=== PATIENT | female | born 1940 | race Caucasian/White ===

== ENCOUNTER → 2017-05-06 | Outpatient (CLI) | payer OTHER ==
[~2017-05-06] MED LIST: CALCTAB5 PO; GABA1CAP5 PO; LEVO137T3 PO; PARO30TA4 PO; POLYSOL OP; PRAV20TA PO; PRM/3 PO; VERA1TAB52 PO; VRPSR240 PO
[2017-05-06 12:17] LABS: BASO % 0.5 %; BASO ABS # 0.02 K/uL (0-0.2); COMPLETE YES; EOS % 7.1 %; HEMATOCRIT 46.6 % (37-47); LYMPH % 38.5 %; LYMPH ABS # 1.67 K/uL (1.2-3.4); MEAN CELL VOLUME 89.6 fL (80-100); MEAN CORPUSCULAR HGB CONC 32.4 g/dl (32-36); MEAN PLATELET VOLUME 10.8 fL (7.4-10.4); MONO % 10.4 %; NEUT % 43.5 %; PLATELET COUNT 177 K/uL (130-400); WHITE BLOOD COUNT 4.34 K/uL (4.8-10.8)
[2017-05-06 12:30] LABS: ALT/SGPT 38 U/L (12-78); AST/SGOT 26 U/L (15-37); BLOOD UREA NITROGEN 16 mg/dl (7-18); BUN/CREATININE RATIO 22.4 (10-20); CARBON DIOXIDE 31 mmol/L (21-32); CHLORIDE 108 mmol/L (98-107); CREATININE 0.71 mg/dl (0.60-1.20); GLUCOSE 112 mg/dl (70-99); POTASSIUM 4.3 mmol/L (3.5-5.1); SODIUM 144 mmol/L (136-145)
[2017-05-06 12:31] LABS: CALCIUM 9.6 mg/dl (8.5-10.1)
[2017-05-06 12:41] LABS: ALB/GLOB RATIO 0.9 (0.9-2); ALKALINE PHOSPHATASE 81 U/L (45-117); CHOLESTEROL 180 mg/dl (0-200); CHOLESTEROL/HDL RATIO 2.4; HDL CHOLESTEROL 76 mg/dl; LDL CHOLESTEROL CALCULATED 80 mg/dl; THYROID STIMULATING HORMONE 0.239 uIu/ml (0.300-4.500); TRIGLYCERIDES 120 mg/dl (0-150); VERY LOW DENSITY LIPOPROT CALC 24 mg/dl
== END | disposition home or self-care (01) ==
LOC: C.LAB1850 10:30
PROVIDERS: ATTEND Internal Medicine Pulmonary Disease
DX: E78.5 Hyperlipidemia, unspecified (principal); I10 Essential (primary) hypertension; G43.709 Chronic migraine without aura, not intractable, without status migrainosus; R73.9 Hyperglycemia, unspecified; E03.9 Hypothyroidism, unspecified

== ENCOUNTER → 2017-05-24 | Day surgery (SDC) | payer OTHER ==
[2017-05-12 10:05] VITALS: Ht 162.6 cm; Wt 72.7 kg
[~2017-05-24] VITALS: Ht 162.6 cm; Wt 72.7 kg
[~2017-05-24] MED LIST changes: +ACETAMINOPHEN 325 MG TAB PO PRN; +ATROPINE SULFATE 0.1 MG/ML 5ML SYR IV PRN; +BRIMONIDINE TART 0.2% OP SOLN PER DROP CHARGE ONE; +EpHEDrine SULFATE INJ 50 MG/ML AMP IV PRN; +EpINEphrine INJ 1MG/ML AMP 1 MG/ML AMP ONE; +LACTATED RINGER'S 1000ML 500 ML IV SCH; +LIDOCAINE 4% OP SOLN DROP CHARGE ONE; +LIDOCAINE 4% OP SOLN DROP CHARGE OPL SCH; +LIDOCAINE HCL 1% MPF 2 ML VIAL ONE; +MIDAZOLAM HCL 1 MG/ML 2ML VIAL ONE; +MOXIFLOXACIN OPH SOLN PER DROP CHARGE ONE; +POVIDONE-IODINE OP SOLN 30 ML BTL ONE; -PRM/3 PO; +TOBRAMYCIN/DEXAMETHASONE OPH OINT PER APPLN CHARGE ONE
[2017-05-24] MEDS: PHENYLEPHRINE HCL 2.5% OP SOLN PER DROP CHARGE OPL SCH ×2 (12:08→12:15)
[2017-05-24] MEDS: TROPICAMIDE 1% OP SOLN PER DROP CHARGE OPL SCH ×2 (12:09→12:16)
[2017-05-24] MEDS: CYCLOPENTOLATE HCL 1% OP SOLN PER DROP CHARGE OPL SCH ×2 (12:11→12:17)
[2017-05-24] MEDS: KETOROLAC 0.5% OP SOLN PER DROP CHARGE OPL SCH ×2 (12:12→12:18)
[2017-05-24] MEDS: MOXIFLOXACIN OPH SOLN PER DROP CHARGE OPL SCH ×2 (12:14→12:20)
--- NOTE | 2017-05-24 13:18 | History & Physical Bridge - [place] ---
H&P Re-Evaluation Bridge Note: I have examined the patient, reviewed the History & Physical and in the interval since the performance of the History & Physical I have noted the following changes of clinical significance: No changes noted
--- NOTE | 2017-05-24 13:38 | Discharge Instructions-SurgCtr ---
Discharge Instructions Date of Service May 24, 2017. Visit Reason for Visit: Cataract Left Eye Discharge Discharge Diagnosis / Problem: cataract left eye Discharge Goals Goal(s): Improve function Activity Recommendations Activity Limitations: per Instructions/Follow-up section Lifting Limitations: no more than 5 pounds Anesthesia . Post Anesthesia Instructions: If you have had General Anesthesia or IV Sedation: * Do not drive today. * Resume driving when surgeon permits. * Do not make important decisions or sign legal documents today. * Call surgeon for: 1. Temperature elevations greater than 101 degrees F. 2. Uncontrollable pain. 3. Excessive bleeding. 4. Persistent nausea and vomiting. 5. Medication intolerance (nausea, vomiting or rash). * For nausea and vomiting use only clear liquids such as: tea, soda, bouillon until nausea subsides, then gradually increase diet as tolerated. * If you have any concerns or questions, call your surgeon's office. If physician is unavailable and it is an emergency, call 911 or go to the nearest emergency room. . Instructions / Follow-Up Instructions / Follow-Up ACTIVITY RECOMMENDATIONS: * Light activities * You may walk outside, read, watch television. * Mild irritation and blurred vision are common for the first few days, redness around the white part of the eye is common. MEDICATIONS: Resume previous medications unless instructed otherwise by your surgeon. Eye drops (today and tomorrow): Cipro - one drop in operative eye every 2 hours while awake Prednisolone 1% - one drop in operative eye every 2 hours while awake Ketorolac - one drop in operative eye every 2 hours while awake SPECIAL CARE INSTRUCTIONS: * If any problems or concerns, please call Dr. Baca's office at . * Keep plastic shield taped over eye to sleep at night. * Keep plastic shield taped over eye except to administer eye drops. * Keep plastic shield on until office visit the following day. FOLLOW UP VISIT: Follow-up with Dr. Baca in the [place] office as scheduled. If not already scheduled, please call the office at . Diet Recommendations Home Diet: resume previous diet Procedures Procedures Performed: Left Cataract Phacoemulsification With Intraocular Lens Implant Pending Studies Studies pending at discharge: no Medical Emergencies . Who to Call and When: Medical Emergencies: If at any time you feel your situation is an emergency, please call 911 immediately. . Non-Emergent Contact Non-Emergency issues call your: [employer] Out Worker . . "Provider Documentation" section prepared by Gonzalo Baca. .
--- NOTE | 2017-05-24 13:39 | Anesthesia Progress Nt - [facility] ---
Anesthesia Post Op Note Date & Time May 24, 2017 at 13:38 Vital Signs Pain Intensity: 0 Vital Signs Past 12 Hours Date Time Temp Pulse Resp B/P (MAP) Pulse Ox O2 Delivery O2 Flow Rate FiO2 05/24/17 11:58 36.9 72 16 135/68 (90) 92 Room Air Notes Mental Status: alert / awake / arousable, participated in evaluation Pt Amnestic to Procedure: Yes Nausea / Vomiting: adequately controlled Pain: adequately controlled Airway Patency, RR, SpO2: stable & adequate BP & HR: stable & adequate Hydration State: stable & adequate Anesthetic Complications: no major complications apparent
[2017-05-24 13:40] VITALS: TEMP 36.4
--- NOTE | 2017-05-24 13:40 | [facility] Operative Report ---
Operative Report Operative Date May 24, 2017. Pre-Operative Diagnosis Cataract Left Eye Post-Operative Diagnosis Same Procedure(s) Performed Left Cataract Phacoemulsification With Intraocular Lens Implant Surgeon Dr. Baca Net Web Developer Surgeon(s) None Estimated Blood Loss 0 Findings cataract left eye Fluids (cc crystalloids) see anesthesia record Specimens 0 Drains none Anesthesia local with sedation Complication(s) None Disposition Recovery Room / PACU Implants B&L MX60 19.0 Indications decreased vision left eye Description of Procedure After informed consent was obtained in the holding area the patient was wheeled back to the operating room where cardiac monitoring leads and oxygen by nasal cannula was administered by Anesthesia. Gentle IV sedation was given, and the patient's left eye was prepped and draped in usual sterile fashion. A wire lid speculum was placed into the left eye and the operating microscope was swung into position. Using 0.12 forceps and a Supersharp blade a paracentesis port was made 3 o'clock hours away from the 3 o'clock position of the patient's left eye. 1% non-preserved Lidocaine was then injected into the anterior chamber for anesthesia. A 2.2 mm keratotome blade was then used to make a shelved clear corneal incision at the 3 o'clock position of the left eye. Amvisc was injected into the anterior chamber and a cystotome and Utrata forceps were used to perform a curvilinear capsulorrhexis. BSS on a hydrodissection cannula was used to hydrodissect the lens nucleus away from the capsular bag. The phacoemulsification handpiece was then used in a stop and chop fashion to remove the lens nucleus. The irrigation and aspiration handpiece was then used to remove the residual cortical material. Amvisc was injected into the capsular bag and anterior chamber and a Bausch & Lomb MX60 19.0 Diopter intraocular lens was injected into the capsular bag. Irrigation and aspiration handpiece was used to remove the residual viscoelastic material. The wounds were hydrated and noted to be watertight. The wire lid speculum was removed from the eye. Vigamox, Brimonidine, and TobraDex ointment were placed on the eye and it was shielded. It should be noted that EndoCoat was used extensively during the case to protect the cornea endothelium. DISPOSITION: The patient tolerated the procedure well and was wheeled to the post anesthesia care unit in stable condition. I attest to the content of the Intraoperative Record and any orders documented therein. Any exceptions are noted below. I attest to the content of the Intraoperative Record and any orders documented therein. Any exceptions are noted below.
[2017-05-24 14:01] VITALS: BP 120/75; PULSE 65; O2SAT 94
== END | disposition home or self-care (01) ==
LOC: X.SURG 11:41
PROVIDERS: ATTEND Ophthalmology
DX: H25.12 Age-related nuclear cataract, left eye (principal); I10 Essential (primary) hypertension; Z90.710 Acquired absence of both cervix and uterus; Z90.49 Acquired absence of other specified parts of digestive tract; Z83.3 Family history of diabetes mellitus

== ENCOUNTER → 2017-06-07 | Day surgery (SDC) | payer OTHER ==
[2017-06-04 08:54] VITALS: Ht 162.6 cm; Wt 72.7 kg
[~2017-06-07] VITALS: Ht 162.6 cm; Wt 72.7 kg
[~2017-06-07] MED LIST changes: +500ML BSS 0.3ML EPI 1:1000PF IRRIG ONE; +AMVISC PLUS 0.8ML SYRINGE INT OCU ONE; +BSS FLUSH ONE; +ENDOCOAT 0.85ML SYRINGE INT OCU ONE; -LIDOCAINE 4% OP SOLN DROP CHARGE OPL SCH; +LIDOCAINE 4% OP SOLN DROP CHARGE OPR SCH; +ONDANSETRON INJ 2 MG/ML 2 ML VIAL IV PRN; +PROPARACAINE 0.5% OP SOLN PER DROP CHARGE OPR SCH; +VISCOAT 0.5ML SYRINGE INT OCU ONE
[2017-06-07] MEDS: PHENYLEPHRINE HCL 2.5% OP SOLN PER DROP CHARGE OPR SCH ×2 (10:57→11:02)
[2017-06-07] MEDS: TROPICAMIDE 1% OP SOLN PER DROP CHARGE OPR SCH ×2 (10:58→11:03)
[2017-06-07] MEDS: CYCLOPENTOLATE HCL 1% OP SOLN PER DROP CHARGE OPR SCH ×2 (10:59→11:04)
[2017-06-07] MEDS: KETOROLAC 0.5% OP SOLN PER DROP CHARGE OPR SCH ×2 (11:00→11:05)
[2017-06-07] MEDS: MOXIFLOXACIN OPH SOLN PER DROP CHARGE OPR SCH ×2 (11:01→11:11)
--- NOTE | 2017-06-07 12:04 | Discharge Instructions-SurgCtr ---
Discharge Instructions Date of Service Jun 07, 2017. Visit Reason for Visit: Cataract Right Eye Discharge Discharge Diagnosis / Problem: cataract right eye Discharge Goals Goal(s): Improve function Activity Recommendations Activity Limitations: per Instructions/Follow-up section Lifting Limitations: no more than 5 pounds Anesthesia . Post Anesthesia Instructions: If you have had General Anesthesia or IV Sedation: * Do not drive today. * Resume driving when surgeon permits. * Do not make important decisions or sign legal documents today. * Call surgeon for: 1. Temperature elevations greater than 101 degrees F. 2. Uncontrollable pain. 3. Excessive bleeding. 4. Persistent nausea and vomiting. 5. Medication intolerance (nausea, vomiting or rash). * For nausea and vomiting use only clear liquids such as: tea, soda, bouillon until nausea subsides, then gradually increase diet as tolerated. * If you have any concerns or questions, call your surgeon's office. If physician is unavailable and it is an emergency, call 911 or go to the nearest emergency room. . Instructions / Follow-Up Instructions / Follow-Up ACTIVITY RECOMMENDATIONS: * Light activities * You may walk outside, read, watch television. * Mild irritation and blurred vision are common for the first few days, redness around the white part of the eye is common. MEDICATIONS: Resume previous medications unless instructed otherwise by your surgeon. Eye drops (today and tomorrow): Cipro - one drop in operative eye every 2 hours while awake Prednisolone 1% - one drop in operative eye every 2 hours while awake Ketorolac - one drop in operative eye every 2 hours while awake SPECIAL CARE INSTRUCTIONS: * If any problems or concerns, please call Dr. Baca's office at . * Keep plastic shield taped over eye to sleep at night. * Keep plastic shield taped over eye except to administer eye drops. * Keep plastic shield on until office visit the following day. FOLLOW UP VISIT: Follow-up with Dr. Baca in the [place] office as scheduled. If not already scheduled, please call the office at . Diet Recommendations Home Diet: resume previous diet Procedures Procedures Performed: Right Cataract Phacoemulsification With Intraocular Lens Implant Pending Studies Studies pending at discharge: no Medical Emergencies . Who to Call and When: Medical Emergencies: If at any time you feel your situation is an emergency, please call 911 immediately. . Non-Emergent Contact Non-Emergency issues call your: Sanitation Technician . . "Provider Documentation" section prepared by Gonzalo Baca. .
--- NOTE | 2017-06-07 12:07 | [facility] Operative Report ---
Operative Report Operative Date Jun 07, 2017. Pre-Operative Diagnosis Cataract Right Eye Post-Operative Diagnosis Same Procedure(s) Performed Right Cataract Phacoemulsification With Intraocular Lens Implant Surgeon Dr. Baca Meat Hanger Surgeon(s) None Estimated Blood Loss 0 mL Findings cataract right eye Specimens None Drains none Anesthesia local with sedation Complication(s) None Disposition Recovery Room / PACU Implants mx60 20.5 Indications decreased vision right eye Description of Procedure After informed consent was obtained in the holding area the patient was wheeled back to the operating room where cardiac monitoring leads and oxygen by nasal cannula was administered by Anesthesia. Gentle IV sedation was given, and the patient's right eye was prepped and draped in usual sterile fashion. A wire lid speculum was placed into the right eye and the operating microscope was swung into position. Using 0.12 forceps and a Supersharp blade a paracentesis port was made 3 o'clock hours away from the 9 o'clock position of the patient's right eye. 1% non-preserved Lidocaine was then injected into the anterior chamber for anesthesia. A 2.0 mm keratotome blade was then used to make a shelved clear corneal incision at the 9 o'clock position of the right eye. Amvisc was injected into the anterior chamber and a cystotome and Utrata forceps were used to perform a curvilinear capsulorrhexis. BSS on a hydrodissection cannula was used to hydrodissect the lens nucleus away from the capsular bag. The phacoemulsification handpiece was then used in a stop and chop fashion to remove the lens nucleus. The irrigation and aspiration handpiece was then used to remove the residual cortical material. Amvisc was injected into the capsular bag and anterior chamber and a Bausch & Lomb MX60 20.5 Diopter intraocular lens was injected into the capsular bag. Irrigation and aspiration handpiece was used to remove the residual viscoelastic material. The wounds were hydrated and noted to be watertight. The wire lid speculum was removed from the eye. Vigamox, Brimonidine, and TobraDex ointment were placed on the eye and it was shielded. It should be noted that EndoCoat was used extensively during the case to protect the cornea endothelium. DISPOSITION: The patient tolerated the procedure well and was wheeled to the post anesthesia care unit in stable condition. I attest to the content of the Intraoperative Record and any orders documented therein. Any exceptions are noted below. I attest to the content of the Intraoperative Record and any orders documented therein. Any exceptions are noted below.
[2017-06-07 12:08] VITALS: TEMP 36.8
[2017-06-07 12:25] VITALS: BP 146/82; PULSE 62; O2SAT 95
--- NOTE | 2017-06-07 12:30 | Anesthesiology Progress Note ---
Anesthesia Post Op Note Date & Time Jun 07, 2017 at 12:29 Vital Signs Pain Intensity: 0 Vital Signs Past 12 Hours Date Time Temp Pulse Resp B/P (MAP) Pulse Ox O2 Delivery O2 Flow Rate FiO2 06/07/17 12:25 62 16 146/82 (103) 95 Room Air 06/07/17 12:08 36.8 78 16 147/89 (108) 97 Room Air 06/07/17 10:50 36.5 77 20 148/81 (103) 93 Room Air Notes Mental Status: alert / awake / arousable, participated in evaluation Pt Amnestic to Procedure: Yes Nausea / Vomiting: adequately controlled Pain: adequately controlled Airway Patency, RR, SpO2: stable & adequate BP & HR: stable & adequate Hydration State: stable & adequate Anesthetic Complications: no major complications apparent
== END | disposition home or self-care (01) ==
LOC: X.SURG 10:33
PROVIDERS: ATTEND Ophthalmology
DX: H25.11 Age-related nuclear cataract, right eye (principal); I10 Essential (primary) hypertension; Z90.710 Acquired absence of both cervix and uterus; Z90.49 Acquired absence of other specified parts of digestive tract; E05.90 Thyrotoxicosis, unspecified without thyrotoxic crisis or storm; Z98.42 Cataract extraction status, left eye

== ENCOUNTER → 2017-07-15 | Outpatient (CLI) | payer OTHER ==
[~2017-07-15] MED LIST changes: -500ML BSS 0.3ML EPI 1:1000PF IRRIG ONE; -ACETAMINOPHEN 325 MG TAB PO PRN; -AMVISC PLUS 0.8ML SYRINGE INT OCU ONE; -ATROPINE SULFATE 0.1 MG/ML 5ML SYR IV PRN; -BRIMONIDINE TART 0.2% OP SOLN PER DROP CHARGE ONE; -BSS FLUSH ONE; -ENDOCOAT 0.85ML SYRINGE INT OCU ONE; -EpHEDrine SULFATE INJ 50 MG/ML AMP IV PRN; -EpINEphrine INJ 1MG/ML AMP 1 MG/ML AMP ONE; -LACTATED RINGER'S 1000ML 500 ML IV SCH; -LIDOCAINE 4% OP SOLN DROP CHARGE ONE; -LIDOCAINE 4% OP SOLN DROP CHARGE OPR SCH; -LIDOCAINE HCL 1% MPF 2 ML VIAL ONE; -MIDAZOLAM HCL 1 MG/ML 2ML VIAL ONE; -MOXIFLOXACIN OPH SOLN PER DROP CHARGE ONE; -ONDANSETRON INJ 2 MG/ML 2 ML VIAL IV PRN; -POVIDONE-IODINE OP SOLN 30 ML BTL ONE; -PROPARACAINE 0.5% OP SOLN PER DROP CHARGE OPR SCH; -TOBRAMYCIN/DEXAMETHASONE OPH OINT PER APPLN CHARGE ONE; -VISCOAT 0.5ML SYRINGE INT OCU ONE
--- NOTE | 2017-07-15 15:39 | MAMMOGRAPHY REPORT ---
BILATERAL DIGITAL SCREENING MAMMOGRAM WITH CAD: 07/15/2017 CLINICAL HISTORY: Routine screening. Patient has no complaints. TECHNIQUE: Bilateral CC, MLO and repeat left CC views were obtained. Current study was also evaluate d with a Computer Aided Detection (CAD) system. COMPARISON: Comparison is made to exams dated: 06/01/2016 mammogram, 05/29/2015 mammogram, 05/28/2014 m ammogram, 05/26/2013 mammogram, 04/21/2012 mammogram, and 10/26/2011 mammogram - [facility]. BREAST COMPOSITION: There are scattered areas of fibroglandular density in both breasts. FINDINGS: There are multiple bilateral circumscribed subcentimeter masses scattered in the breasts, f luctuating in size compared to prior mammograms, most compatible with fluctuating cysts. There are s table scattered and grouped benign-appearing punctate microcalcifications. No new suspicious mass, a rchitectural distortion or cluster of microcalcifications is seen. IMPRESSION: ACR BI-RADS CATEGORY 1: NEGATIVE There is no mammographic evidence of malignancy. A 1 year screening mammogram is recommended. The pa tient will receive written notification of the results. Approximately 10% of breast cancers are not detected with mammography. A negative mammographic report should not delay biopsy if a clinically suggestive mass is present. Soledad Mustafa M.D. ay/:07/15/2017 15:19:01 Teaching Manager: Eliane ROSARIO)(Brian)([place]), [facility] letter sent: Normal 1/2 BI-RADS Code: ACR BI-RADS Category 1: Negative
== END | disposition home or self-care (01) ==
LOC: C.MAMM 13:21
PROVIDERS: ATTEND Internal Medicine Pulmonary Disease
DX: Z12.31 Encounter for screening mammogram for malignant neoplasm of breast (principal)

== ENCOUNTER 2021-03-15 19:20 | Observation (INO) ==
[2021-03-15] MEDS ORDERED: SODIUM CHLORIDE 0.9% 1000ML 1,000 ML IV ONE (19:38)
[2021-03-15] MEDS ORDERED: ONDANSETRON INJ 2 MG/ML 2 ML VIAL IV STA (19:38)
--- NOTE | 2021-03-15 19:44 | Emergency Department Note ---
History of Present Illness General Chief complaint: Abdominal Pain Stated complaint: ABD/BACK PAIN Time Seen by Provider: 03/15/21 19:26 Source: patient Mode of arrival: EMS Limitations: no limitations History of Present Illness Maximum Pain Intensity: 8 This patient is a 80-year-old female who presents to the emergency department for evaluation of abdominal/back pain. The patient states that she was at a graduation constitution party and developed a fairly sudden onset of pain throughout her abdomen. She states that she got up to leave and felt "woozy," and sat back down. She decided to leave the constitution party but became very nauseous and vomited on the way home. She states that at this time, she has some soreness in her ab domen and some pain throughout her back. She rates her current discomfort a 3/10. She states that at its worst, the pain was a 9/10. She denies any diarrhea, chest pain, shortness of breath or urinary symptoms. She denies recent illness or fevers. Home Medications Medication Instructions Recorded Confirmed Type calcium carbonate 600 mg(1,500 1 tab PO DAILY tab 06/06/19 03/15/21 History mg)-vitamin D3 800 unit chewable tablet verapamil 120 mg tablet,extended 120 mg PO DAILY #90 tab 04/25/20 03/15/21 Rx release pravastatin 20 mg tablet 20 mg PO QPM #90 tab 05/29/20 03/15/21 Rx levothyroxine 112 mcg PO DAILY 03/15/21 03/15/21 History paroxetine HCl 30 mg PO BID 03/15/21 03/15/21 History verapamil 240 mg PO DAILY 03/15/21 03/15/21 History Allergies Allergy/AdvReac Type Severity Reaction Status Date / Time No Known Drug Allergies Allergy Unknown Verified 03/15/21 19:34 Past Med/Surg History Medical History Obstructive uropathy Renal cyst Surgical History History of cataract surgery (~2016) History of colonoscopy (~2003) History of laparoscopic cholecystectomy History of lithotripsy (~2013) History of tonsillectomy and adenoidectomy History of total abdominal hysterectomy Family History Mother Graves' disease Grandmother Hypertension Uncle Hypertension Mother Kidney stones Sister Breast cancer Social History Smoking Status: Unknown if ever smoked Hx Alcohol Use: No Hx Substance Use: No Preferred Language: Faroese marital status: current occupational status: retired Feels Safe at Home: Yes Childhood Exposure to Second-Hand Smoke: Yes Dental Care, Regularly: Yes Physical Activity Frequency: 5-6 Times per Week Seatbelt Use: always Review of Systems A total of 10 systems reviewed and were otherwise negative Physical Exam Vital Signs Vital Signs - 24 hr 03/15/21 19:03 03/15/21 19:30 03/15/21 20:00 Temperature 36.9 C Temperature Source Oral Pulse Rate 98 H 91 H Pulse Rate from SpO2 Sensor 98 H 89 Pulse Rhythm Regular Respiratory Rate 22 18 Respiratory Effort / Characteristics Non-Labored Respiratory Depth Normal Blood Pressure 164/110 H 155/105 H 168/107 H Blood Pressure Mean 128 121 127 Blood Pressure Position Lying Pulse Oximetry 98 94 94 Oxygen Delivery Method Room Air Sepsis Recent Fever Within 48 Hours Yes Sepsis New/Unexplained Change in Mental Status No Sepsis Action Taken by Nursing No Action Required 03/15/21 20:30 03/15/21 20:54 03/15/21 21:00 Temperature Temperature Source Pulse Rate 86 93 H Pulse Rate from SpO2 Sensor 87 92 H Pulse Rhythm Respiratory Rate 19 25 H Respiratory Effort / Characteristics Respiratory Depth Blood Pressure 147/93 H 182/102 H 166/98 H Blood Pressure Mean 111 128 120 Blood Pressure Position Pulse Oximetry 91 93 Oxygen Delivery Method Sepsis Recent Fever Within 48 Hours Sepsis New/Unexplained Change in Mental Status Sepsis Action Taken by Nursing 03/15/21 21:30 03/15/21 21:53 03/15/21 22:00 Temperature Temperature Source Pulse Rate 93 H 87 86 Pulse Rate from SpO2 Sensor 86 90 86 Pulse Rhythm Respiratory Rate 16 25 H 16 Respiratory Effort / Characteristics Respiratory Depth Blood Pressure 151/102 H 190/106 H 174/104 H Blood Pressure Mean 118 134 127 Blood Pressure Position Pulse Oximetry 92 97 95 Oxygen Delivery Method Sepsis Recent Fever Within 48 Hours Sepsis New/Unexplained Change in Mental Status Sepsis Action Taken by Nursing 03/15/21 22:30 Temperature Temperature Source Pulse Rate 85 Pulse Rate from SpO2 Sensor 86 Pulse Rhythm Respiratory Rate 22 Respiratory Effort / Characteristics Respiratory Depth Blood Pressure 167/99 H Blood Pressure Mean 121 Blood Pressure Position Pulse Oximetry 92 Oxygen Delivery Method Sepsis Recent Fever Within 48 Hours Sepsis New/Unexplained Change in Mental Status Sepsis Action Taken by Nursing VITALS: Vitals are noted on the nurse's note and reviewed by myself. GENERAL: This is a 80-year-old female, in no acute distress, well-developed well-nourished. SKIN: The skin was without rashes. Facial erythema noted. EARS: External auditory canals clear, tympanic membranes pearly bingham without erythema or effusion bilaterally. EYES: Pupils equal round and reactive to light and accommodation. NOSE: Patent, turbinates without inflammation or discharge. MOUTH: Mucous membranes moist. Tonsils are not enlarged. Pharynx without erythema or exudate. NECK: Supple without nuchal rigidity. No lymphadenopathy. HEART: Regular rate and rhythm without murmurs gallops or rubs. LUNGS: Clear to auscultation bilaterally without wheezes, rales or rhonchi. ABDOMEN: Positive bowel sounds x 4. Soft, mild epigastric tenderness to palpation. No guarding or rebound tenderness. NEURO: Patient was alert and oriented to person place and time. Course Consultations Consultation #1: Dr. Shelton COLEMAN hospitalist Administered Medications Discontinued Medications Sodium Chloride (Nss 1000ml) 1,000 mls @ 999 mls/hr IV .Q1H1M ONE Stop: 03/15/21 20:38 Last Infusion: 03/15/21 22:34 Dose: 0 mls/hr Documented by: [id number] Admin: 03/15/21 20:17 Dose: 999 mls/hr Documented by: [id number] Promethazine HCl (Phenergan) 6.25 mg in 50.25 mls @ 201 mls/hr IV NOW STA Stop: 03/15/21 22:12 Last Admin: 03/15/21 22:41 Dose: 201 mls/hr Documented by: [id number] Ioversol (Optiray 300 100ml) 84 ml IV ONCE ONE Stop: 03/15/21 21:08 Last Admin: 03/15/21 21:08 Dose: 84 ml Documented by: [id number] Ondansetron HCl (Ondansetron Inj 2 Mg/Ml 2 Ml Vial) 4 mg IV NOW STA Stop: 03/15/21 19:39 Last Admin: 03/15/21 20:17 Dose: 4 mg Documented by: [id number] Medical Decision Making Differential Diagnosis Differential diagnosis includes appendicitis, diverticulitis, bowel obstruction, inflammatory bowel disease, renal colic, PUD, biliary pathology, pancreatitis, mesenteric ischemia, aortic pathology, infection, genitourinary, UTI, perforated viscus, among others. Home Medications Current Medication List: was personally reviewed by me Laboratory Data Attestation: I reviewed the patient's lab results. Result diagrams: 03/15/21 19:46 03/15/21 19:46 Lab Results 03/15/21 03/15/21 03/15/21 Range/Units 19:46 19:46 20:53 WBC 8.08 (4.8-10.8) K/uL RBC 5.45 H (4.2-5.4) M/uL Hgb 15.6 (12.0-16.0) g/dL Hct 47.2 H (37-47) % MCV 86.6 (80-100) fL MCH 28.6 (25-34) pg MCHC 33.1 (32-36) g/dL RDW Std Deviation 43.3 (36.4-46.3) fL RDW Coeff of Vishal 13.8 (11.5-14.5) % Plt Count 192 (130-400) K/uL MPV 9.9 (7.4-10.4) fL Immature Gran % (Auto) 0.2 % Neut % (Auto) 77.7 % Lymph % (Auto) 14.5 % Luna % (Auto) 6.9 % Eos % (Auto) 0.6 % Baso % (Auto) 0.1 % Neut # (Auto) 6.27 (1.4-6.5) K/uL Lymph # (Auto) 1.17 L (1.2-3.4) K/uL Luna # (Auto) 0.56 (0.11-0.59) K/uL Eos # (Auto) 0.05 (0-0.5) K/uL Baso # (Auto) 0.01 (0-0.2) K/uL Immature Gran # (Auto) 0.02 (0.00-0.02) K/uL Sodium 142 (136-145) mmol/L Potassium 3.9 (3.5-5.1) mmol/L Chloride 109 H (98-107) mmol/L Carbon Dioxide 30 (21-32) mmol/L Anion Gap 3.0 (3-11) BUN 18 (7-18) mg/dl Creatinine 0.73 (0.6-1.2) mg/dl Est Cr Clr Drug Dosing 57.5 ml/min Est GFR ( Amer) 91.4 Est GFR (Non-Af Amer) 78.9 BUN/Creatinine Ratio 24.1 H (10-20) Glucose 120 H (70-99) mg/dl Calcium 9.4 (8.5-10.1) mg/dl Total Bilirubin 0.4 (0.2-1) mg/dl AST 34 (15-37) U/L ALT 53 (12-78) U/L Alkaline Phosphatase 70 (45-117) U/L Troponin I < 0.015 (0-0.045) ng/ml Total Protein 7.8 (6.4-8.2) gm/dl Albumin 3.8 (3.4-5.0) gm/dl Globulin 4.0 (2.5-4.0) gm/dl Albumin/Globulin Ratio 1.0 (0.9-2) Lipase 651 H (73-393) U/L Urine Color Yellow Urine Appearance Clear (Clear) Urine pH 7.5 (4.5-7.5) Ur Specific Nemo 1.011 (1.000-1.030) Urine Protein Negative (Negative) Urine Glucose (UA) Negative (Negative) Urine Ketones Negative (Negative) Urine Blood Trace H (Negative) Urine Nitrite Negative (Negative) Urine Bilirubin Negative (Negative) Urine Urobilinogen Negative (Negative) Ur Leukocyte Esterase Negative (Negative) Urine WBC (Auto) 1-5 (0-5) /hpf Urine RBC (Auto) 0-4 (0-4) /hpf U Hyaline Cast (Auto) 0 (0-5) /lpf U Epithel Cells (Auto) 10-20 H (0-5) /lpf Urine Bacteria (Auto) Negative (Negative) COVID-19 Eval Order SARS-CoV-2 (PCR) (Negative) Influenza Type A (PCR) (Neg) Influenza Type B (PCR) (Neg) RSV (RT-PCR) (Neg) 03/15/21 03/15/21 Range/Units 22:00 22:00 WBC (4.8-10.8) K/uL RBC (4.2-5.4) M/uL Hgb (12.0-16.0) g/dL Hct (37-47) % MCV (80-100) fL MCH (25-34) pg MCHC (32-36) g/dL RDW Std Deviation (36.4-46.3) fL RDW Coeff of Vishal (11.5-14.5) % Plt Count (130-400) K/uL MPV (7.4-10.4) fL Immature Gran % (Auto) % Neut % (Auto) % Lymph % (Auto) % Luna % (Auto) % Eos % (Auto) % Baso % (Auto) % Neut # (Auto) (1.4-6.5) K/uL Lymph # (Auto) (1.2-3.4) K/uL Luna # (Auto) (0.11-0.59) K/uL Eos # (Auto) (0-0.5) K/uL Baso # (Auto) (0-0.2) K/uL Immature Gran # (Auto) (0.00-0.02) K/uL Sodium (136-145) mmol/L Potassium (3.5-5.1) mmol/L Chloride (98-107) mmol/L Carbon Dioxide (21-32) mmol/L Anion Gap (3-11) BUN (7-18) mg/dl Creatinine (0.6-1.2) mg/dl Est Cr Clr Drug Dosing ml/min Est GFR ( Amer) Est GFR (Non-Af Amer) BUN/Creatinine Ratio (10-20) Glucose (70-99) mg/dl Calcium (8.5-10.1) mg/dl Total Bilirubin (0.2-1) mg/dl AST (15-37) U/L ALT (12-78) U/L Alkaline Phosphatase (45-117) U/L Troponin I (0-0.045) ng/ml Total Protein (6.4-8.2) gm/dl Albumin (3.4-5.0) gm/dl Globulin (2.5-4.0) gm/dl Albumin/Globulin Ratio (0.9-2) Lipase (73-393) U/L Urine Color Urine Appearance (Clear) Urine pH (4.5-7.5) Ur Specific Nem[place] (1.000-1.030) Urine Protein (Negative) Urine Glucose (UA) (Negative) Urine Ketones (Negative) Urine Blood (Negative) Urine Nitrite (Negative) Urine Bilirubin (Negative) Urine Urobilinogen (Negative) Ur Leukocyte Esterase (Negative) Urine WBC (Auto) (0-5) /hpf Urine RBC (Auto) (0-4) /hpf U Hyaline Cast (Auto) (0-5) /lpf U Epithel Cells (Auto) (0-5) /lpf Urine Bacteria (Auto) (Negative) COVID-19 Eval Order [facility]FluRsv at [facility] SARS-CoV-2 (PCR) NEGATIVE (Negative) Influenza Type A (PCR) Negative (Neg) Influenza Type B (PCR) Negative (Neg) RSV (RT-PCR) Negative (Neg) Imaging Data Attestation: I personally reviewed and interpreted this imaging study as follows: Radiologist's Impression: CT ABDOMEN & PELVIS With Contrast: Impression: There are changes of acute pancreatitis involving the pancreatic head. Few punctate calcifications seen in the pancreatic head. Pancreatic duct is not dilated. Cholecystectomy. Bilateral nonobstructing renal stones are seen, measuring up to 7 mm in diameter on the left and 3 mm in diameter on the right. Radiologist: Alex Gomez MD ECG Data Attestation: I personally reviewed and interpreted this ECG as follows: Indication: + vomiting Rhythm: + normal sinus ECG Intervals/blocks: + Incomplete right bundle branch block ECG ST segments: + T-wave inversions Change: the following changes noted (RBBB) MDM Narrative Continuous monitor car operator: Order was placed for continuous monitor car operator. Patient was placed on the monitor car operator. Patient was noted to be in normal sinus rhythm at an initial rate of 95 bpm. The patient is a 80-year-old female who presents today complaining of abdominal pain and vomiting. Labs revealed no leukocytosis or anemia. Lipase was found to be elevated, but there were no other concerning electrolyte abnormalities. CT scan of the abdomen/pelvis shows evidence of acute pancreatitis. Patient does not drink alcohol. She has had a prior cholecystectomy. Her main complaint is nausea/vomiting. She was given antiemetics in the ER as well as IV fluids. The case was discussed with the [facility] service, who agreed to evaluate the patient for further care. Impression & Plan Acute pancreatitis Discharge Plan Visit Data Chief Complaint: Abdominal Pain Stated Complaint: ABD/BACK PAIN ED Provider: William Keating ED Midlevel Provider: Jaimee Paiz Discharge Problem: Acute pancreatitis Forms Stand Alone Forms: My [facility] Prescriptions Prescriptions: No Action verapamil 120 mg tablet extended release 120 mg PO DAILY Qty: 90 RF: 3 pravastatin 20 mg tablet 20 mg PO QPM Qty: 90 RF: 3 Caltrate 600 plus D 600 mg (1,500 mg)-800 unit tablet,chewable 1 tab PO DAILY RF: 0 paroxetine HCl 30 mg tablet 30 mg PO BID RF: 0 verapamil 240 mg tablet extended release 240 mg PO DAILY RF: 0 levothyroxine 112 mcg tablet 112 mcg PO DAILY RF: 0 Discharge Problem: Acute pancreatitis Qualifiers: Pancreatitis type: unspecified pancreatitis type Acute pancreatitis complicatio n: unspecified Qualified Code(s): K85.90 - Acute pancreatitis without necrosis or infection, unspecified
[2021-03-15 19:58] LABS: Basophils # (auto) 0.01 K/uL (0-0.2); Basophils % (auto) 0.1 %; Eosinophils # (auto) 0.05 K/uL (0-0.5); Eosinophils % (auto) 0.6 %; Hematocrit (blood only) 47.2 % (37-47); Hemoglobin 15.6 g/dL (12.0-16.0); Immature Granulocytes # (auto) 0.02 K/uL (0.00-0.02); Immature Granulocytes % (auto) 0.2 %; Lymphocytes # (auto) 1.17 K/uL (1.2-3.4); Lymphocytes % (auto) 14.5 %; Mean Corpuscular Hemoglobin 28.6 pg (25-34); Mean Corpuscular Hgb Conc 33.1 g/dL (32-36); Mean Corpuscular Volume 86.6 fL (80-100); Mean Platelet Volume 9.9 fL (7.4-10.4); Monocytes # (auto) 0.56 K/uL (0.11-0.59); Monocytes % (auto) 6.9 %; Neutrophils # (auto) 6.27 K/uL (1.4-6.5); Neutrophils % (auto) 77.7 %; Platelet Count 192 K/uL (130-400); RDW Coefficient of Variation 13.8 % (11.5-14.5); RDW Standard Deviation 43.3 fL (36.4-46.3); Red Blood Count 5.45 M/uL (4.2-5.4); White Blood Count 8.08 K/uL (4.8-10.8)
[2021-03-15 20:17] LABS: Alanine Aminotransferase 53 U/L (12-78); Albumin Level 3.8 gm/dl (3.4-5.0); Aspartate Aminotransferase 34 U/L (15-37); BUN Creatinine Ratio 24.1 (10-20); Blood Urea Nitrogen 18 mg/dl (7-18); Calcium 9.4 mg/dl (8.5-10.1); Carbon Dioxide 30 mmol/L (21-32); Chloride 109 mmol/L (98-107); Creatinine Clr Calc Pharmacy 57.5 ml/min; Est GFR (African American) 91.4; Est GFR (Non-African American) 78.9; Glucose 120 mg/dl (70-99); Lipase 651 U/L (73-393); Potassium 3.9 mmol/L (3.5-5.1); Sodium 142 mmol/L (136-145)
[2021-03-15 20:22] LABS: Alkaline Phosphatase 70 U/L (45-117); Bilirubin,Total 0.4 mg/dl (0.2-1); Total Protein 7.8 gm/dl (6.4-8.2); Troponin I < 0.015 ng/ml (0-0.045)
[2021-03-15 21:05] LABS: Appearance Urine Clear (Clear); Bacteria Urine Automated Negative (Negative); Bilirubin Urine Negative (Negative); Blood Urine Trace (Negative); Cast Urine Automated 0 /lpf (0-5); Color Urine Yellow; Glucose Urine UA Negative (Negative); Ketones Urine Negative (Negative); Leukocyte Esterase Urine Negative (Negative); Nitrite Urine Negative (Negative); Protein Urine Negative (Negative); RBC Urine Automated 0-4 /hpf (0-4); Specific Gravity Urine 1.011 (1.000-1.030); Urobilinogen Urine Negative (Negative); pH Urine 7.5 (4.5-7.5)
[2021-03-15] MEDS ORDERED: OPTIRAY 300 100mL IV ONE (21:07)
[2021-03-15] MEDS ORDERED: PROMETHAZINE 6.25 MG/50.25 ML BAG IV STA (21:58)
[2021-03-15 23:05] LABS: Influenza A virus by PCR Negative (Neg); Influenza B virus by PCR Negative (Neg); RSV by PCR Negative (Neg); SARS CoV2 RNA(COVID-19) InHosp NEGATIVE (Negative)
--- NOTE | 2021-03-15 23:35 | History & Physical Report ---
Date of Service March 15, 2021 Assessment & Plan (1) Hypertension: (2) Hypothyroidism: (3) Dyslipidemia: History of Present Illness 80 yo F hx HLD, HTN, Hypothyroidism, migraines, osteopenia brought to ER by family for acute onset worsening abdominal pain. States she was at a [place] democrat [place] the [place] earlier and all of a sudden had terrible abdominal pain. Pain did not relent with walking or time. Denies any alcohol use at democrat. Denies any fried or heavily fatty foods at the democrat. Daughter does say that she's had pancreatitis before, though that was due to cholelithiasis and required cholecystectomy. Describes pain as sharp, epigastric, radiating to back. NBNB emesis x1. No fevers, diarrhea. ED course significant for 1L NS repletion, CT A/P showing mild pancreatitis with fluid and fat stranding and multiple punctate calcifications in pancreatic head w/o duct enlargement. Primary Care Provider: Jose Yousif MD Allergies Allergy/AdvReac Type Severity Reaction Status Date / Time No Known Drug Allergies Allergy Unknown Verified 03/15/21 19:34 Home Medications Medication Instructions Recorded Confirmed Type calcium carbonate 600 mg(1,500 1 tab PO DAILY tab 06/06/19 03/15/21 History mg)-vitamin D3 800 unit chewable tablet verapamil 120 mg tablet,extended 120 mg PO DAILY #90 tab 04/25/20 03/15/21 Rx release pravastatin 20 mg tablet 20 mg PO QPM #90 tab 05/29/20 03/15/21 Rx levothyroxine 112 mcg PO DAILY 03/15/21 03/15/21 History paroxetine HCl 30 mg PO BID 03/15/21 03/15/21 History verapamil 240 mg PO DAILY 03/15/21 03/15/21 History Past Med/Surg History Medical History (Updated 03/17/21 @ 00:04 by Reyna Conrad) Acute pancreatitis Chronic migraine Dyslipidemia Hypertension Hypothyroidism Nephrolithiasis Obstructive uropathy Osteopenia Pancreatitis due to biliary obstruction Renal cyst Surgical History History of cataract surgery (~2016) History of colonoscopy (~2003) History of laparoscopic cholecystectomy History of lithotripsy (~2013) History of tonsillectomy and adenoidectomy History of total abdominal hysterectomy Family History Mother Graves' disease Grandmother Hypertension Uncle Hypertension Mother Kidney stones Sister Breast cancer Social History Smoking Status: Never smoker Second Hand Exposure: No; Do You Dip or Chew Tobacco: No; Tobacco Cessation Education Requested by Patient: No Hx Alcohol Use: No Hx Substance Use: No Preferred Language: Icelandic Communication Ability: Effective Dried Fruit Washer Required: No Beliefs That Will Affect Care: None marital status: Current Living Situation: Spouse current occupational status: retired Other Information That Helps Us Care for You: No Feels Safe at Home: Yes Safety Concerns: Feels Safe At This Time Childhood Exposure to Second-Hand Smoke: Yes Dental Care, Regularly: Yes Physical Activity Frequency: 5-6 Times per Week Seatbelt Use: always Assistive Devices: None Review of Systems Constitutional: no fever, no chills, no sweats and no fatigue Eyes: no blind spots and no discharge Ear, Nose, Mouth, Throat: no hearing loss and no nasal congestion Respiratory: no cough and no dyspnea Cardiovascular: no chest pain, no dyspnea on exertion and no edema Gastrointestinal: + abdominal pain, + bloating, + nausea and + vomiting; no c onstipation, no diarrhea/loose stools and no blood in stools Genitourinary: no dysuria Musculoskeletal: no joint pain and no myalgia Neurologic: no tingling, no numbness and no headache(s) Endocrine: no fatigue Physical Exam Physical Exam: Constitutional: elderly female, mildly confused laying in bed in NAD Eyes: EOMI, pupils equal and reactive bilaterally, no scleral icterus Cardiac: RRR, no murmurs, gallops or rubs. Normal S1, S2 Pulm: CTA BL, no wheezes, rhonchi, crackles or rubs, moving air well throughout both lungs Abd: soft, distended, epigastric tenderness, hyperactive BS Extremities: 2+ peripheral pulses, no edema Neuro: no focal deficits, moving all 4 limbs, A&Ox3 Results & Data Results & Data ([facility]) Vital Signs (Past 12 Hours) Vital Signs Temp Pulse Resp BP Pulse Ox 03/15/21 22:30 85 22 167/99 H 92 03/15/21 22:00 86 16 174/104 H 95 03/15/21 21:53 87 25 H 190/106 H 97 05/08/21 21:30 93 H 16 151/102 H 92 03/15/21 21:00 166/98 H 03/15/21 20:54 93 H 25 H 182/102 H 93 03/15/21 20:30 86 19 147/93 H 91 03/15/21 20:00 91 H 18 168/107 H 94 03/15/21 19:30 155/105 H 94 03/15/21 19:03 36.9 C 98 H 22 164/110 H 98 Laboratory Results WBC 8.08 K/uL (4.8-10.8) 03/15/21 19:46 RBC 5.45 M/uL (4.2-5.4) H 03/15/21 19:46 Hgb 15.6 g/dL (12.0-16.0) 03/15/21 19:46 Hct 47.2 % (37-47) H 03/15/21 19:46 MCV 86.6 fL (80-100) 03/15/21 19:46 MCH 28.6 pg (25-34) 03/15/21 19:46 MCHC 33.1 g/dL (32-36) 03/15/21 19:46 RDW Std Deviation 43.3 fL (36.4-46.3) 03/15/21 19:46 RDW Coeff of Vishal 13.8 % (11.5-14.5) 03/15/21 19:46 Plt Count 192 K/uL (130-400) 03/15/21 19:46 MPV 9.9 fL (7.4-10.4) 03/15/21 19:46 Immature Gran % (Auto) 0.2 % 03/15/21 19:46 Neut % (Auto) 77.7 % 03/15/21 19:46 Lymph % (Auto) 14.5 % 03/15/21 19:46 [place]urry % (Auto) 6.9 % 03/15/21 19:46 Eos % (Auto) 0.6 % 03/15/21 19:46 Baso % (Auto) 0.1 % 03/15/21 19:46 Neut # (Auto) 6.27 K/uL (1.4-6.5) 03/15/21 19:46 Lymph # (Auto) 1.17 K/uL (1.2-3.4) L 03/15/21 19:46 Scurry # (Auto) 0.56 K/uL (0.11-0.59) 03/15/21 19:46 Eos # (Auto) 0.05 K/uL (0-0.5) 03/15/21 19:46 Baso # (Auto) 0.01 K/uL (0-0.2) 03/15/21 19:46 Immature Gran # (Auto) 0.02 K/uL (0.00-0.02) 03/15/21 19:46 Sodium 142 mmol/L (136-145) 03/15/21 19:46 Potassium 3.9 mmol/L (3.5-5.1) 03/15/21 19:46 Chloride 109 mmol/L (98-107) H 03/15/21 19:46 Carbon Dioxide 30 mmol/L (21-32) 03/15/21 19:46 Anion Gap 3.0 (3-11) 03/15/21 19:46 BUN 18 mg/dl (7-18) 03/15/21 19:46 Creatinine 0.73 mg/dl (0.6-1.2) 03/15/21 19:46 Est Cr Clr Drug Dosing 57.5 ml/min 03/15/21 19:46 Est GFR ( Amer) 91.4 03/15/21 19:46 Est GFR (Non-Af Amer) 78.9 03/15/21 19:46 BUN/Creatinine Ratio 24.1 (10-20) H 03/15/21 19:46 Glucose 120 mg/dl (70-99) H 03/15/21 19:46 Calcium 9.4 mg/dl (8.5-10.1) 03/15/21 19:46 Total Bilirubin 0.4 mg/dl (0.2-1) 03/15/21 19:46 AST 34 U/L (15-37) 03/15/21 19:46 ALT 53 U/L (12-78) 03/15/21 19:46 Alkaline Phosphatase 70 U/L (45-117) 03/15/21 19:46 Troponin I < 0.015 ng/ml (0-0.045) 03/15/21 19:46 Total Protein 7.8 gm/dl (6.4-8.2) 03/15/21 19:46 Albumin 3.8 gm/dl (3.4-5.0) 03/15/21 19:46 Globulin 4.0 gm/dl (2.5-4.0) 03/15/21 19:46 Albumin/Globulin Ratio 1.0 (0.9-2) 03/15/21 19:46 Lipase 651 U/L (73-393) H 03/15/21 19:46 Urine Color Yellow 03/15/21 20:53 Urine Appearance Clear (Clear) 03/15/21 20:53 Urine pH 7.5 (4.5-7.5) 03/15/21 20:53 Ur Specific [place] 1.011 (1.000-1.030) 03/15/21 20:53 Urine Protein Negative (Negative) 03/15/21 20:53 Urine Glucose (UA) Negative (Negative) 03/15/21 20:53 Urine Ketones Negative (Negative) 03/15/21 20:53 Urine Blood Trace (Negative) H 03/15/21 20:53 Urine Nitrite Negative (Negative) 03/15/21 20:53 Urine Bilirubin Negative (Negative) 03/15/21 20:53 Urine Urobilinogen Negative (Negative) 03/15/21 20:53 Ur Leukocyte Esterase Negative (Negative) 03/15/21 20:53 Urine WBC (Auto) 1-5 /hpf (0-5) 03/15/21 20:53 Urine RBC (Auto) 0-4 /hpf (0-4) 03/15/21 20:53 U Hyaline Cast (Auto) 0 /lpf (0-5) 03/15/21 20:53 U Epithel Cells (Auto) 10-20 /lpf (0-5) H 03/15/21 20:53 Urine Bacteria (Auto) Negative (Negative) 03/15/21 20:53 COVID-19 Eval Order CovFluRsv at [facility] 03/15/21 22:00 SARS-CoV-2 (PCR) NEGATIVE (Negative) 03/15/21 22:00 Influenza Type A (PCR) Negative (Neg) 03/15/21 22:00 Influenza Type B (PCR) Negative (Neg) 03/15/21 22:00 RSV (RT-PCR) Negative (Neg) 03/15/21 22:00 CT A/P w Con: (STATRAD): acute pancreatitis involving pancreatic head. Few punctate calcifications seen in pancreatic head. pancreatic duct not dilated. cholecystectomy. BL nonobstructive renal stones measuring up to 7 mm in diameter on left and 3 mm on right. Supervising Physician Co-Signing Physician Notes Patient seen and examined, chart reviewed, case discussed with Dr. Carbajal and I agree with her assessment and plan as above. Resident Activity Tracking Resident Involvement: Resident Care Provided Care Provided: Adult [facility] Medicine
[2021-03-16] MEDS ORDERED: NITROGLYCERIN SL 0.4 MG/TAB TAB SL PRN (00:42)
[2021-03-16] MEDS ORDERED: ONDANSETRON INJ 2 MG/ML 2 ML VIAL IV PRN (00:42)
[2021-03-16] MEDS ORDERED: MAGNESIUM HYDROXIDE SUSP 30 ML UDC PO PRN (00:42)
[2021-03-16] MEDS ORDERED: ALUMINUM/MAGNESIUM SUSP 30 ML UDC PO PRN (00:42)
[2021-03-16] MEDS ORDERED: ACETAMINOPHEN 500 MG TAB PO PRN (00:42)
[2021-03-16] MEDS ORDERED: LACTATED RINGER'S 1,000 ML IV ONE (01:00)
[2021-03-16] MEDS ORDERED: LACTATED RINGER'S 1,000 ML IV SCH (02:00)
[2021-03-16] MEDS ORDERED: LEVOTHYROXINE SODIUM 112 MCG TABLET PO SCH (06:30)
--- NOTE | 2021-03-16 08:02 | CT Scan Report ---
CT SCAN OF THE ABDOMEN AND PELVIS WITH IV CONTRAST CLINICAL HISTORY: Generalized abdominal pain. Vomiting. COMPARISON STUDY: Abdominal CT dated 09/03/2014. TECHNIQUE: Following the IV administration of 84 cc of Optiray 300, CT scan of the abdomen and pelvi s is performed from the lung bases to the proximal femora. Images are reviewed in the axial, sagittal , and coronal planes. IV contrast was administered without complication. A dose lowering technique wa s utilized adhering to the principles of ALARA. CT DOSE: 512.95 mGy.cm FINDINGS: Lung bases: The heart is normal in size and without pericardial effusion. There is mild elevation of the right hemidiaphragm and bibasilar atelectasis. A small hiatal hernia is noted. Liver: The contrast-enhanced liver is normal in size, contour, and attenuation. There is no intrahepa tic biliary ductal dilatation. The hepatic veins and portal veins are patent. Gallbladder: Surgically absent noting clips in the gallbladder fossa. Spleen: Normal in size and attenuation. Pancreas: There is significant inflammatory change identified around the pancreatic head with peripan creatic stranding and fluid. This tracks inferiorly along the mesentery, and likely represents acute pancreatitis. The distal pancreatic body and tail are normal as imaged. The splenic vein is patent. T he pancreas enhances homogeneously. No organized peripancreatic fluid collection is identified. Adrenal glands: Unremarkable. Kidneys: The contrast enhanced kidneys demonstrate mild cortical atrophy and are without hydronephros is. The kidneys enhance symmetrically. There are 3.8 cm and 5.7 cm right renal cysts. There are numer ous tiny nonobstructing right renal calculi which measure up to 4 mm. An 8 mm calculus is seen within a left extrarenal pelvis. There is mild urothelial thickening and enhancement within the left extrar enal pelvis. Abdominal vasculature: The abdominal aorta is normal in course and caliber noting moderate atheroscle rotic calcification. Bowel: There is no bowel obstruction. The appendix is well-visualized and normal. Peritoneum: There is no intraperitoneal free air. Peripancreatic fluid is discussed above. There is a fat-containing umbilical hernia. Lymphadenopathy: None. Pelvic viscera: The bladder is normal in appearance. The uterus is surgically absent. No adnexal lesi on is seen. Skeletal structures: The skeletal structures are osteopenic. There is mild to moderate lumbosacral sp ondylosis. No lytic or blastic lesions are seen. IMPRESSION: 1. Findings are consistent with acute pancreatitis involving the pancreatic head. Correlation with se rum amylase/lipase levels is recommended. 2. The gland enhances homogeneously and no organized peripancreatic fluid collection is identified. 3. Bilateral nephrolithiasis. 4. An 8 mm calculus is seen within a left extrarenal pelvis. Mild urothelial thickening and enhanceme nt of the left renal pelvis is likely related to the presence of the calculus. Correlate with clinica l findings and urinalysis. 5. Additional findings as above. ACT 112: Negative or not required by law. Electronically signed by: Aakash Valentino M.D. 03/16/2021 8:01 AM
--- NOTE | 2021-03-16 08:13 | Hospitalist Progress Note ---
Date of Service March 16, 2021 Assessment & Plan (1) Acute pancreatitis: 80 yo F with hx HTN, HLD, hypothyroidism, s/p cholecystectomy admitted for abdominal pain due to acute pancreatitis. Also with acute delirium after Phenergan given here. Acute Pancreatitis - Lipase elevated at 651, not greater than 4 times upper limit of normal but CT Abd/Pelvis with findings for acute pancreatitis. - Treated with NPO and IV Hydration. Received 1L NS in ED and another 1L of LR on floor @ 125hr. - Lipase now WNL at 93. - CBC with WBC and Hgb WNL and otherwise unremarkable; No significant electrolyte abnormalities. No abnormal LFTs. - Advance to clear liquid diet and then as tolerated. - Stop IV fluids as right hand infiltrate from IV - Zofran 4mg IV for Nausea. Avoid meds that have associated anti-cholinergic effects for acute treatments here as delirious on Phenergan. - tylenol prn pain - monitor I/O Hypoxia: - Currently hypoxic on 2L O2. Hypoxia during sleep with sedating effects of phenergan as most likely cause. No signs of fluid overload. - Monitor SpO2, Vitals otherwise stable. Delirium - likely adverse reaction to phenergan. - UA unremarkable for infection, performed in ED. - Half life of phenergan is typically 4-6 hours but could be up to 12 hours. - Reorient often, help maintain night/day in room with lights during day and dark at night. Efforts to avoid prolongation of hospital stay with attempts to her Danika back home to familiar environment, if able. - PT/OT for early mobilization. Do not believe she would be able to participate today, but will place order. - Will continue to reassess. HTN: - cont verapamil 360mgs HLD: - con pravastatin 20, - Hgb A1c pending - Lipids - Unremarkable and are very healthy values, Trigly 101, Cholesterol 161, LDL 68, HDL 73. Great HDL level supports cardioprotection. Anxiety: - on paroxetine 30 mg BID at home Hypothyroid: - con levothyroxine 112 mcg Bone Health: - Hold home Vit D+Epi DVT ppx: lovenox FEN/GI: Heart healthy, clear liquids, advance as tolerated, IVF stopped. If symptoms resume than make NPO and restart LR 2 125mL. Code Status: Full Code Dispo: Med/Surg tele (2) Hypertension: (3) Hypothyroidism: (4) Dyslipidemia: Admission and Anticipated Discharge Date Admission Date: March 15, 2021 Supervising Physician Co-Signing Physician Notes Resident Physician Supervision Note: I independently interviewed and examined the patient and verified the crawford history and physical, reviewed labs and image studies and agree with resident Dr. Shook findings and care plan. Subjective Caveat: History Limited by - AMS. Overnight provider relayed on sign out that Phenergan caused AMS and sedation. Danika was placed on 2L while sleeping with a spO2 of 86% with correction to 96% while sleeping. She was drowsy but easily arousable and difficult to remain alert to provide thorough history. She did want to show me that her right hand was swollen at IV site. She did verbalize that pain was improved. She wasn't oriented to place, knew she was in hospital but thought [place] was [facility]. Physical Exam Constitutional: comfortable; no acute distress Drowsy, arouses easily but d ozes off without continued verbal stimuli. Cannot maintain alertness or keep eyes open but does response appropriately to questioning. Not oriented to place, thought at [facility]. Eyes: + anicteric sclerae; no eyelid abnormality and no conjunctival abnormality ENMT: external ear and nose normal, oropharynx normal Neck: trachea midline, no thyromegaly Respiratory: normal respiratory effort, lungs clear to auscultation Cardiovascular: RRR, no murmur, no edema Gastrointestinal (Abdomen): Percussion/Palpation: + abdomen tender (mild epigastric); no guarding and abdomen not rigid Musculoskeletal: Head/Neck/Chest: normocephalic and head atraumatic Skin: no rashes, warm and dry Neurologic: moves all extremities; no focal motor deficits Psychiatric: Orientation: oriented to person and oriented to time; + not oriented to place ([place]) Results & Data Results & Data ([facility]) Vital Signs (Past 12 Hours) Vital Signs Temp Pulse Pulse Resp BP BP Pulse Ox 03/16/21 07:23 72 03/16/21 07:12 36.9 C 72 16 159/87 H 93 03/16/21 05:18 81 18 155/87 H 92 03/16/21 03:40 36.5 C 85 16 184/96 H 90 03/16/21 03:25 85 03/16/21 01:18 36.6 C 88 18 169/100 H 90 03/15/21 23:30 101 H 16 168/98 H 03/15/21 23:00 92 H 22 176/125 H 90 03/15/21 22:30 85 22 167/99 H 92 03/15/21 22:00 86 16 174/104 H 95 03/15/21 21:53 87 25 H 190/106 H 97 03/15/21 21:30 93 H 16 151/102 H 92 03/15/21 21:00 166/98 H 03/15/21 20:54 93 H 25 H 182/102 H 93 03/15/21 20:30 86 19 147/93 H 91 Laboratory Results Laboratory Results - last 24 hr 03/15/21 03/15/21 03/15/21 19:46 19:46 20:53 WBC 8.08 RBC 5.45 H Hgb 15.6 Hct 47.2 H MCV 86.6 MCH 28.6 MCHC 33.1 RDW Std Deviation 43.3 RDW Coeff of Vishal 13.8 Plt Count 192 MPV 9.9 Immature Gran % (Auto) 0.2 Neut % (Auto) 77.7 Lymph % (Auto) 14.5 Bureau % (Auto) 6.9 Eos % (Auto) 0.6 Baso % (Auto) 0.1 Neut # (Auto) 6.27 Lymph # (Auto) 1.17 L Bureau # (Auto) 0.56 Eos # (Auto) 0.05 Baso # (Auto) 0.01 Immature Gran # (Auto) 0.02 Sodium 142 Potassium 3.9 Chloride 109 H Carbon Dioxide 30 Anion Gap 3.0 BUN 18 Creatinine 0.73 Est Cr Clr Drug Dosing 57.5 Est GFR ( Amer) 91.4 Est GFR (Non-Af Amer) 78.9 BUN/Creatinine Ratio 24.1 H Glucose 120 H Estimat Average Glucose Hemoglobin A1c Calcium 9.4 Total Bilirubin 0.4 AST 34 ALT 53 Alkaline Phosphatase 70 Troponin I < 0.015 Total Protein 7.8 Albumin 3.8 Globulin 4.0 Albumin/Globulin Ratio 1.0 Triglycerides Cholesterol LDL Cholesterol, Calc VLDL Cholesterol, Calc HDL Cholesterol Cholesterol/HDL Ratio Lipase 651 H Urine Color Yellow Urine Appearance Clear Urine pH 7.5 Ur Specific [place] 1.011 Urine Protein Negative Urine Glucose (UA) Negative Urine Ketones Negative Urine Blood Trace H Urine Nitrite Negative Urine Bilirubin Negative Urine Urobilinogen Negative Ur Leukocyte Esterase Negative Urine WBC (Auto) 1-5 Urine RBC (Auto) 0-4 U Hyaline Cast (Auto) 0 U Epithel Cells (Auto) 10-20 H Urine Bacteria (Auto) Negative COVID-19 Eval Order SARS-CoV-2 (PCR) Influenza Type A (PCR) Influenza Type B (PCR) RSV (RT-PCR) 03/15/21 03/15/21 03/16/21 22:00 22:00 07:52 WBC 7.07 RBC 4.82 Hgb 13.6 Hct 42.3 MCV 87.8 MCH 28.2 MCHC 32.2 RDW Std Deviation 45.1 RDW Coeff of Vishal 14.1 Plt Count 181 MPV 9.9 Immature Gran % (Auto) 0.1 Neut % (Auto) 59.8 Lymph % (Auto) 25.6 Bureau % (Auto) 11.7 Eos % (Auto) 2.7 Baso % (Auto) 0.1 Neut # (Auto) 4.22 Lymph # (Auto) 1.81 Bureau # (Auto) 0.83 H Eos # (Auto) 0.19 Baso # (Auto) 0.01 Immature Gran # (Auto) 0.01 Sodium Potassium Chloride Carbon Dioxide Anion Gap BUN Creatinine Est Cr Clr Drug Dosing Est GFR ( Amer) Est GFR (Non-Af Amer) BUN/Creatinine Ratio Glucose Estimat Average Glucose Hemoglobin A1c Calcium Total Bilirubin AST ALT Alkaline Phosphatase Troponin I Total Protein Albumin Globulin Albumin/Globulin Ratio Triglycerides Cholesterol LDL Cholesterol, Calc VLDL Cholesterol, Calc HDL Cholesterol Cholesterol/HDL Ratio Lipase Urine Color Urine Appearance Urine pH Ur Specific [place] Urine Protein Urine Glucose (UA) Urine Ketones Urine Blood Urine Nitrite Urine Bilirubin Urine Urobilinogen Ur Leukocyte Esterase Urine WBC (Auto) Urine RBC (Auto) U Hyaline Cast (Auto) U Epithel Cells (Auto) Urine Bacteria (Auto) COVID-19 Eval Order CovFluRsv at [facility] SARS-CoV-2 (PCR) NEGATIVE Influenza Type A (PCR) Negative Influenza Type B (PCR) Negative RSV (RT-PCR) Negative 03/16/21 03/16/21 03/16/21 07:52 07:52 07:52 WBC RBC Hgb Hct MCV MCH MCHC RDW Std Deviation RDW Coeff of Vishal Plt Count MPV Immature Gran % (Auto) Neut % (Auto) Lymph % (Auto) Bureau % (Auto) Eos % (Auto) Baso % (Auto) Neut # (Auto) Lymph # (Auto) Bureau # (Auto) Eos # (Auto) Baso # (Auto) Immature Gran # (Auto) Sodium 143 Potassium 3.6 Chloride 109 H Carbon Dioxide 30 Anion Gap 3.0 BUN 10 D Creatinine 0.60 Est Cr Clr Drug Dosing 69.2 Est GFR ( Amer) 101.2 Est GFR (Non-Af Amer) 87.3 BUN/Creatinine Ratio 17.2 Glucose 101 H Estimat Average Glucose Pending Hemoglobin A1c Pending Calcium 8.9 Total Bilirubin 0.4 AST 32 ALT 46 Alkaline Phosphatase 59 Troponin I Total Protein 6.8 Albumin 3.4 Globulin 3.4 Albumin/Globulin Ratio 1.0 Triglycerides 101 Cholesterol 161 LDL Cholesterol, Calc 68 VLDL Cholesterol, Calc 20 HDL Cholesterol 73 Cholesterol/HDL Ratio 2 Lipase 91 Urine Color Urine Appearance Urine pH Ur Specific [place] Urine Protein Urine Glucose (UA) Urine Ketones Urine Blood Urine Nitrite Urine Bilirubin Urine Urobilinogen Ur Leukocyte Esterase Urine WBC (Auto) Urine RBC (Auto) U Hyaline Cast (Auto) U Epithel Cells (Auto) Urine Bacteria (Auto) COVID-19 Eval Order SARS-CoV-2 (PCR) Influenza Type A (PCR) Influenza Type B (PCR) RSV (RT-PCR) Diagnostic Findings Abd/Pelvis CT IMPRESSION: 1. Findings are consistent with acute pancreatitis involving the pancreatic head. Correlation with serum amylase/lipase levels is recommended. 2. The gland enhances homogeneously and no organized peripancreatic fluid collection is identified. 3. Bilateral nephrolithiasis. 4. An 8 mm calculus is seen within a left extrarenal pelvis. Mild urothelial thickening and enhancement of the left renal pelvis is likely related to the presence of the calculus. Correlate with clinical findings and urinalysis. Medications Administered Acetaminophen (Acetaminophen 500 Mg Tab) 1,000 mg PO Q8H PRN PRN Reason: pain Stop: 04/15/21 00:41 Last Admin: 03/16/21 03:56 Dose: 1,000 mg Documented by: [id number] Levothyroxine Sodium (Levothyroxine Sodium 112 Mcg Tablet) 112 mcg PO DAILYBB TAM Stop: 04/15/21 06:29 Last Admin: 03/16/21 06:03 Dose: 112 mcg Documented by: [id number] Resident Activity Tracking Resident Involvement: Resident Care Provided Care Provided: Adult Hospital Medicine (1) Acute pancreatitis Acute pancreatitis complication: unspecified Pancreatitis type: unspecified pancreatitis type Qualified Code(s): K85.90 - Acute pancreatitis without necrosis or infection, unspecified
[2021-03-16 08:28] LABS: Basophils # (auto) 0.01 K/uL (0-0.2); Basophils % (auto) 0.1 %; Eosinophils # (auto) 0.19 K/uL (0-0.5); Eosinophils % (auto) 2.7 %; Hematocrit (blood only) 42.3 % (37-47); Hemoglobin 13.6 g/dL (12.0-16.0); Immature Granulocytes # (auto) 0.01 K/uL (0.00-0.02); Immature Granulocytes % (auto) 0.1 %; Lymphocytes # (auto) 1.81 K/uL (1.2-3.4); Lymphocytes % (auto) 25.6 %; Mean Corpuscular Hemoglobin 28.2 pg (25-34); Mean Corpuscular Hgb Conc 32.2 g/dL (32-36); Mean Corpuscular Volume 87.8 fL (80-100); Mean Platelet Volume 9.9 fL (7.4-10.4); Monocytes # (auto) 0.83 K/uL (0.11-0.59); Monocytes % (auto) 11.7 %; Neutrophils # (auto) 4.22 K/uL (1.4-6.5); Neutrophils % (auto) 59.8 %; Platelet Count 181 K/uL (130-400); RDW Coefficient of Variation 14.1 % (11.5-14.5); RDW Standard Deviation 45.1 fL (36.4-46.3); Red Blood Count 4.82 M/uL (4.2-5.4); White Blood Count 7.07 K/uL (4.8-10.8)
[2021-03-16] MEDS ORDERED: VERAPAMIL HCL 120 MG TABCR PO SCH (09:00)
[2021-03-16] MEDS ORDERED: CALCIUM 600MG + VIT D 400 IU TAB PO SCH (09:00)
[2021-03-16] MEDS ORDERED: PARoxetine HCL 20 MG TAB PO SCH (09:00)
[2021-03-16] MEDS ORDERED: ENOXAPARIN INJ 40 MG/0.4 ML SYR SQ SCH (09:00)
[2021-03-16] MEDS ORDERED: VERAPAMIL HCL 240 MG TABCR PO SCH (09:00)
[2021-03-16 09:05] LABS: Albumin Level 3.4 gm/dl (3.4-5.0); BUN Creatinine Ratio 17.2 (10-20); Calcium 8.9 mg/dl (8.5-10.1); Creatinine Clr Calc Pharmacy 69.2 ml/min; Est GFR (African American) 101.2; Est GFR (Non-African American) 87.3; Potassium 3.6 mmol/L (3.5-5.1)
[2021-03-16 09:08] LABS: Bilirubin,Total 0.4 mg/dl (0.2-1); Globulin 3.4 gm/dl (2.5-4.0); Total Protein 6.8 gm/dl (6.4-8.2)
--- NOTE | 2021-03-16 11:46 | Electrocardiogram Report ---
Test Reason : Blood Pressure : / mmHG Vent. Rate : 093 BPM Atrial Rate : 093 BPM P-R Int : 238 ms QRS Dur : 116 ms QT Int : 400 ms P-R-T Axes : 029 008 -18 degrees QTc Int : 497 ms Sinus rhythm with 1st degree A-V block Incomplete right bundle branch block T wave abnormality, consider inferior ischemia Prolonged QT Abnormal ECG When compared with ECG of 19-SEP-2014 15:19, DC interval has increased Incomplete right bundle branch block is now Present Confirmed by William Batres ([id number]) on 03/16/2021 11:45:55 AM Referred By: REFERRED SELF Confirmed By:William Batres
--- NOTE | 2021-03-16 14:35 | Discharge Summary ---
Date of Service March 16, 2021 Admission HPI Per Admitting Provider 80 yo F hx HLD, HTN, Hypothyroidism, migraines, osteopenia brought to ER by family for acute onset worsening abdominal pain. States she [place] and all of a sudden had terrible abdominal pain. Pain did not relent with walking or time. Denies any alcohol use at green party. Denies any fried or heavily fatty foods at the green party. Daughter does say that she's had pancreatitis before, though that was due to cholelithiasis and required cholecystectomy. Describes pain as sharp, epigastric, radiating to back. NBNB emesis x1. No fevers, diarrhea. ED course significant for 1L NS repletion, CT A/P showing mild pancreatitis with fluid and fat stranding and multiple punctate calcifications in pancreatic head w/o duct enlargement. Primary Care Provider: Jose Yousif MD Admission Exam Per Admitting Provider Constitutional: elderly female, mildly confused laying in bed in NAD Eyes: EOMI, pupils equal and reactive bilaterally, no scleral icterus Cardiac: RRR, no murmurs, gallops or rubs. Normal S1, S2 Pulm: CTA BL, no wheezes, rhonchi, crackles or rubs, moving air well throughout both lungs Abd: soft, distended, epigastric tenderness, hyperactive BS Extremities: 2+ peripheral pulses, no edema Neuro: no focal deficits, moving all 4 limbs, A&Ox3 Principal Diagnosis Acute Pancreatitis Discharge Exam Constitutional WD/WN, vitals as above cooperative and comfortable significantly improved drowsniess from early this morning; alert and oriented x 3 Eyes PERRL, conjunctivae normal, anicteric sclerae ENMT external ear and nose normal, oropharynx normal Neck trachea midline, no thyromegaly Respiratory normal respiratory effort, lungs clear to auscultation Cardiovascular Rate/Rhythm: regular rate and regular rhythm Gastrointestinal (Abdomen) Percussion/Palpation: abdomen nontender, no guarding and abdomen not rigid Musculoskeletal Head/Neck/Chest: normocephalic and head atraumatic Skin no rashes, warm and dry Neurologic moves all extremities and awake Psychiatric A+Ox3, euthymic affect Discharge Data Allergies Allergy/AdvReac Type Severity Reaction Status Date / Time No Known Drug Allergies Allergy Unknown Verified 03/15/21 19:34 Consultations 03/15/21 22:24 ED Decision to Admit Stat Ordered Studies 03/15/21 19:39 CT abd pelvis IV con only Urgent FINDINGS: Lung bases: The heart is normal in size and without pericardial effusion. There is mild elevation of the right hemidiaphragm and bibasilar atelectasis. A small hiatal hernia is noted. Liver: The contrast-enhanced liver is normal in size, contour, and attenuation. There is no intrahepatic biliary ductal dilatation. The hepatic veins and portal veins are patent. Gallbladder: Surgically absent noting clips in the gallbladder fossa. Spleen: Normal in size and attenuation. Pancreas: There is significant inflammatory change identified around the pancreatic head with peripancreatic stranding and fluid. This tracks inferiorly along the mesentery, and likely represents acute pancreatitis. The distal pancreatic body and tail are normal as imaged. The splenic vein is patent. The pancreas enhances homogeneously. No organized peripancreatic fluid collection is identified. Adrenal glands: Unremarkable. Kidneys: The contrast enhanced kidneys demonstrate mild cortical atrophy and are without hydronephrosis. The kidneys enhance symmetrically. There are 3.8 cm and 5.7 cm right renal cysts. There are numerous tiny nonobstructing right renal calculi which measure up to 4 mm. An 8 mm calculus is seen within a left extrarenal pelvis. There is mild urothelial thickening and enhancement within the left extrarenal pelvis. Abdominal vasculature: The abdominal aorta is normal in course and caliber noting moderate atherosclerotic calcification. Bowel: There is no bowel obstruction. The appendix is well-visualized and normal. Peritoneum: There is no intraperitoneal free air. Peripancreatic fluid is discussed above. There is a fat-containing umbilical hernia. Lymphadenopathy: None. Pelvic viscera: The bladder is normal in appearance. The uterus is surgically absent. No adnexal lesion is seen. Skeletal structures: The skeletal structures are osteopenic. There is mild to moderate lumbosacral spondylosis. No lytic or blastic lesions are seen. IMPRESSION: 1. Findings are consistent with acute pancreatitis involving the pancreatic head . Correlation with serum amylase/lipase levels is recommended. 2. The gland enhances homogeneously and no organized peripancreatic fluid collection is identified. 3. Bilateral nephrolithiasis. 4. An 8 mm calculus is seen within a left extrarenal pelvis. Mild urothelial thickening and enhancement of the left renal pelvis is likely related to the presence of the calculus. Correlate with clinical findings and urinalysis. 5. Additional findings as above. Hospital Course (1) Acute pancreatitis: Summary: 80 yo F with hx HTN, HLD, hypothyroidism, s/p cholecystectomy admitted for abdominal pain due to acute pancreatitis. Also with acute delirium/sedation after Phenergan given here. Epigastric abdomainl pain with N/V, Lipase of [address] read for acute pancreatitis, was treated with 2L of IVF and Lipase returned to 93 WNL early AM. Tolerated PO diet well. Her sedation from phenergan rapidly improved and she tolerated food throughout the day with solid food intake prior to discharge. Also noted to be hypoxic on admission likely from sedation due to phernargan. Normal oxygenation on room air on discharge. She didn't have any return of pain or current pain, no nausea or vomiting. There is no current further treatment or medication needed on discharge. She was instructed to follow up with PCP or return if symptoms return. (2) Hypertension: (3) Hypothyroidism: (4) Dyslipidemia: Total Time Total Time Spent Total Time Spent (In Minutes): 35 Total Time Includes: Examination of the Patient, Discharge Planning and Medication Reconciliation Discharge Plan Discharge Items Patient Disposition: Home - Self-Care Reason For Visit: PANCREATITIS Discharge Diagnosis: Acute Pancreatitis Activity: Per Instructions section Non-emergency contact: Primary Care Provider Call non-emergency contact if: your symptoms worsen and your pain is worsening Follow-up/Referrals: Jose Yousif MD [Primary Care Provider] - Diet: Heart Healthy Addtl Attending Provider Instructions: The cause of your stomach pain was inflammation of your pancreas called pancreatitis. This problem was treated with IV Fluids and bowel rest. Your pain has resolved. Your lipase lab value was elevated, seen in pancreatitis, and a CT scan of your stomach showed inflammation of your pancreas. Your lipase level was normal on recheck which is a marker for resolution of illness. You were able to tolerate food without return of symptoms which also supports that pancreatitis has resolved. If you have return of abdominal pain, nausea, vomiting, unable to tolerate drinking fluids, please return to [facility] ED. Please follow a bland diet until you feel well enough to go back to regular diet. You did experience some sedation from medication phenergan which was given for you for nausea. Feeling drowsy should wear off within the next 1-2 days. Please make an appointment with your Primary Care Physician for hospital follow up. A copy of your hospital visit/medical record will be sent to your provider's office. Pending Studies at Discharge: No Stand-Alone Forms: My [facility] Medications and DC Order Prescriptions: Continued verapamil 120 mg tablet extended release 120 mg PO DAILY Qty: 90 RF: 3 pravastatin 20 mg tablet 20 mg PO QPM Qty: 90 RF: 3 Caltrate 600 plus D 600 mg (1,500 mg)-800 unit tablet,chewable 1 tab PO DAILY RF: 0 paroxetine HCl 30 mg tablet 30 mg PO BID RF: 0 verapamil 240 mg tablet extended release 240 mg PO DAILY RF: 0 levothyroxine 112 mcg tablet 112 mcg PO DAILY RF: 0 Discharge Orders: Discharge Order (Routine); Ordered 03/16/21 Ordered By: Arley Cr/Other Patient Handouts: Understanding Pancreatitis Admission Data Admit Date/Time: 03/15/21 23:18 Attending Provider: Babs Gomez Admit Provider: Angie Peoples Primary Care Provider: Jose Yousif Other Providers: Angie Peoples Other Interventions: Discharge Summary Assessment (RN) Last Done: 03/16/21 14:47 Supervising Physician Co-Signing Physician Notes Resident Physician Supervision Note: I independently interviewed and examined the patient and verified the crawford history and physical, reviewed labs and image studies and agree with resident Dr. Shook findings and care plan. Resident Activity Tracking Resident Involvement: Resident Care Provided Care Provided: Adult Hospital Medicine
[2021-03-16] MEDS ORDERED: PRAVASTATIN SOD 20 MG TAB PO SCH (21:00)
--- NOTE | 2021-03-17 00:34 | Billing Data ---
Date of Service March 15, 2021 Coding Level of Care Code 87788 Initial Inpt Care Lvl 2
[2021-03-17 07:57] LABS: Estimated Average Glucose 140 mg/dl; Hemoglobin A1C 6.5 % (4.5-5.6)
== END 2021-03-16 16:35 | disposition home or self-care (01) ==
LOC: ED 19:20 → 2N 23:18 → SUATTDRO 23:18 → INTOOBSV 23:18 → 2N 03-16

== ENCOUNTER 2024-12-04 09:49 | Observation (INO) ==
--- NOTE | 2024-12-04 09:53 | Emergency Department Note ---
Impression & Plan Hypoxia, Dehydration, Gastroenteritis due to norovirus ED Provider Note NAME: LETHA CASTILLO AGE: 84 SEX: F : 1940 ARRIVES VIA: Ambulance INFORMANT: Patient ED PROVIDER(S): Yves Alberto MD CHIEF COMPLAINT: Nausea, vomiting, diarrhea. PLAN: Disposition: Admit MEDICAL DECISION MAKING: The patient is a pleasant 84-year-old woman with a past medical history of hypertension, hyperlipidemia, migraines, pancreatitis who presents to the emergency department via EMS for generalized weakness with nausea, vomiting, diarrhea over the past several days where she reports being unable to keep anything down. EMS reported finding the patient to have O2 saturation of 88% on room air initially but was in the low 90s on her initial assessment emergency department. Patient denies any cough or congestion. She denies any urinary symptoms. She denies measured fevers but has felt chills. On evaluation the patient is uncomfortable, fatigued appearing but no distress, afebrile stable vital signs. O2 saturation did eventually decline to 87% on room air and so she was placed on nasal cannula. Lungs are clear with normal respiratory effort. She appears clinically dry. Abdomen is nontender. EKG without overt acute ischemia. CXR negative for acute cardiopulmonary process per my personal preliminary review/interpretation. WBC, H/H and platelets within normal limits. There is no neutrophilia or left shift. Chemistry without metabolic acidosis. Potassium is 3.1. BUNs/creatinine is 30 consistent with patient's clinically dry appearance. AST is mildly elevated 69, nonspecific and LFTs are otherwise normal. High- sensitivity troponin 13.7, within normal limits. Lipase is normal. Procalcitonin is not elevated. Respiratory BioFire was negative. Stool BioFire was ordered but awaiting sample. CT of the abdomen pelvis was negative for acute intra-abdominal process. Prior evidence of chronic pancreatitis is described without evidence for acute pancreatitis. Left sided urothelial thickening is unchanged. Urine analysis is pending. Review of the patient's right lung base on CT demonstrates groundglass opacities which may reflect atelectasis, aspiration is also considered. Patient was treated with IV hydration, IV potassium repletion initiated, IV famotidine, Zofran and APAP. Case was d/w Dr. Valencia, [facility] hospitalist who will evaluate the patient for admission. Stool sample eventually obtained and was positive for norovirus. Further management per admitting team. Triage Nursing notes reviewed and agree them. Prior/external medical records reviewed Vital Signs: reviewed Differential diagnosis: Gastroenteritis, food borne illness, infections, appendicitis, diverticulitis, inflammatory bowel disease, obstruction, GI bleed, biliary pathology, volvulus, as well as other pathologies. ER treatment provided: See below. Diagnostics interpreted by me: ECG: Normal sinus rhythm, 86 bpm, no ectopy, right bundle branch block, T wave abnormality, no overt ST elevation or depression, QTc 545, QRS 126, similar to June 05, 2022. Cardiac Monitoring: An order for continuous cardiac monitoring was placed and demonstrated Normal sinus rhythm, 86 bpm, no ectopy. Laboratory studies: See below Imaging studies: See below Consultation(s): Case was d/w Dr. Valencia, [facility] [place] [facility] hospitalist who will evaluate the patient for admission. HPI: The patient is a pleasant 84-year-old woman with a past medical history of hypertension, hyperlipidemia, migraines, pancreatitis who presents to the emergency department via EMS for generalized weakness with nausea, vomiting, diarrhea over the past several days where she reports being unable to keep anything down. EMS reported finding the patient to have O2 saturation of 88% on room air initially but was in the low 90s on her initial assessment emergency department. Patient denies any cough or congestion. She denies any urinary symptoms. She denies measured fevers but has felt chills. ROS: See above HPI for pertinent positives & negatives. A total of 10 systems reviewed and were otherwise negative. VITALS:See Below PHYSICAL EXAMINATION: GENERAL: Awake, alert, uncomfortable-appearing, in no distress HENT: Normocephalic, atraumatic. Oropharynx with dry mucous membranes and otherwise unremarkable. EYES: Normal conjunctiva. Sclera non-icteric. NECK: Supple. No nuchal rigidity. FROM. No JVD. RESPIRATORY: Clear to auscultation. CARDIAC: Regular rate, normal rhythm. Extremities warm and well perfused. Pulses equal. ABDOMEN: Soft, non-distended. No tenderness to palpation. No rebound or guarding. No masses. MUSCULOSKELETAL: Chest examination reveals no tenderness. The back is symmetrical on inspection without obvious abnormality. There is no CVA tenderness to palpation. No joint edema. LOWER EXTREMITIES: Calves are equal size bilaterally and non-tender. No edema. No discoloration. NEURO: Normal sensorium. No sensory or motor deficits noted. SKIN: No rash or jaundice noted. Yves Alberto MD Past Med/Surg History Problem List Gastroenteritis due to norovirus (Acute) Dehydration (Acute) Hypoxia (Acute) Prolonged QT interval Nausea, vomiting and diarrhea Impaired fasting glucose Gastritis Chronic migraine Dyslipidemia (Chronic) Hypertension (Chronic) Hypothyroidism (Chronic) Medical History Pancreatitis due to biliary obstruction Acute pancreatitis Nephrolithiasis Osteopenia Renal cyst Obstructive uropathy Surgical History History of lithotripsy (~2013) History of cataract surgery (~2016) History of colonoscopy (~2003) History of total abdominal hysterectomy History of tonsillectomy and adenoidectomy History of laparoscopic cholecystectomy Family History Mother Graves' disease Grandmother Hypertension Uncle Hypertension Mother Kidney stones Sister Breast cancer Social History Smoking Status: Never smoker Second Hand Exposure: No; Do You Dip or Chew Tobacco: No; Hx Alcohol Use: No Hx Substance Use: No Preferred Language: Omani Communication Ability: Effective Cake Icer And Packer Required: No Beliefs That Will Affect Care: None marital status: / Current Living Situation: Alone current occupational status: retired Other Information That Helps Us Care for You: No Feels Safe at Home: Yes Safety Concerns: Feels Safe At This Time Childhood Exposure to Second-Hand Smoke: Yes Diet: regular Dental Care, Regularly: Yes Physical Activity Frequency: 5-6 Times per Week Seatbelt Use: always Assistive Devices: Cane and Glasses Allergies Allergies Allergy/AdvReac Type Severity Reaction Status Date / Time No Known Allergies Allergy Verified 12/04/24 13:06 Home Meds Home Medications Medication Instructions Recorded Confirmed calcium 600 mg (as carbonate)-vit 1 tab PO QAM 06/06/19 12/04/24 D3 20 mcg (800 unit) chewable tablet (Caltrate plus D) latanoprostene bunod 0.024 % eye 1 drp OPB QPM 05/31/24 12/04/24 drops (Vyzulta) levothyroxine 100 mcg tablet 100 mcg PO DAILYBB 12/04/24 12/04/24 paroxetine HCl 30 mg tablet 30 mg PO BID 12/04/24 12/04/24 verapamil 120 mg tablet,extended 120 mg PO HS 12/04/24 12/04/24 release verapamil 240 mg tablet,extended 240 mg PO QAM 12/04/24 12/04/24 release Previous Rx's Medication Instructions Recorded pravastatin 20 mg tablet 20 mg PO QPM #100 tabs 10/02/24 Results & Data (ED) Vital Signs Vital Signs - 24 hr 12/04/24 09:54 12/04/24 09:57 12/04/24 10:07 Temperature 36.7 C Temperature Source Oral Pulse Rate 94 H 87 Pulse Rate [Apical] 91 H Respiratory Rate 20 23 Respiratory Effort / Characteristics Non-Labored Spontaneous Respiratory Depth Normal Respiratory Pattern Regular Blood Pressure 158/105 H Blood Pressure [Right Arm] 158/105 H Blood Pressure Mean 122 Blood Pressure Mean [Right Arm] 122 Pulse Oximetry 90 90 Oxygen Delivery Method Room Air Room Air Oxygen Flow Rate Sepsis Recent Fever Within 48 Hours No Sepsis New/Unexplained Change in Mental Status No Sepsis Action Taken by Nursing No Action Required Pulse Oximetry Post Tiitration 12/04/24 10:12 12/04/24 10:56 12/04/24 11:47 Temperature Temperature Source Pulse Rate Pulse Rate [Apical] 73 Respiratory Rate 18 Respiratory Effort / Characteristics Non-Labored Spontaneous Respiratory Depth Respiratory Pattern Blood Pressure Blood Pressure [Right Arm] 139/90 Blood Pressure Mean Blood Pressure Mean [Right Arm] 106 Pulse Oximetry 90 87 L 97 Oxygen Delivery Method Room Air Nasal Cannula Nasal Cannula Oxygen Flow Rate 2 2 Sepsis Recent Fever Within 48 Hours Sepsis New/Unexplained Change in Mental Status Sepsis Action Taken by Nursing Pulse Oximetry Post Tiitration 95 Laboratory Data Attestation: I reviewed the patient's lab results. 12/04/24 10:00 12/04/24 10:00 Lab Results 12/04/24 12/04/24 Range/Units 10:00 10:05 WBC 5.86 (4.8-10.8) K/ul RBC 5.46 H (4.20-5.40) M/uL Hgb 15.2 (12.0-16.0) g/dl POC Hgb 15.6 (12.0-16.0) g/dl Hct 46.9 (37.0-47.0) % POC Hct 46 (37-47) % MCV 85.9 (80.0-100.0) fL MCH 27.8 (25.0-34.0) pg MCHC 32.4 (32.0-36.0) g/dL RDW Std Deviation 41.1 (36.4-46.3) fL RDW Coeff of Vishal 13.3 (11.5-14.5) % Plt Count 179 (130-400) K/uL MPV 10.0 (9.4-12.4) fL Immature Gran % (Auto) 0.2 % Neut % (Auto) 54.9 % Lymph % (Auto) 28.7 % [place] % (Auto) 16.0 % Eos % (Auto) 0.0 % Baso % (Auto) 0.2 % Neut # (Auto) 3.22 (1.40-6.50) K/uL Lymph # (Auto) 1.68 (1.20-3.40) K/uL [place] # (Auto) 0.94 H (0.11-0.59) K/uL Eos # (Auto) 0.00 (0.00-0.50) K/uL Baso # (Auto) 0.01 (0.00-0.20) K/uL Immature Gran # (Auto) 0.01 (0.01-0.20) K/uL PT 10.4 (9.0-12.0) Seconds INR 1.0 (0.9-1.1) POC Sodium 144 (135-144) mmol/L Sodium 145 (136-145) mmol/L POC Potassium 2.9 L (3.3-5.0) mmol/L Potassium 3.1 L (3.5-5.1) mmol/L POC Chloride 104 (101-112) mmol/L Chloride 104 (98-107) mmol/L Carbon Dioxide 32 (21-32) mmol/L POC Total CO2 28 (24-31) mmol/L Anion Gap 9 (3-11) POC Anion Gap 16.0 (16-25) mmol/L POC BUN 28 H (7-18) mg/dl BUN 32 H (6-23) mg/dl Creatinine 0.96 (0.6-1.2) mg/dl POC Creatinine 1.0 (0.6-1.3) mg/dl Est Cr Clr Drug Dosing 43.5 ml/min eGFR 59.07 BUN/Creatinine Ratio 33.3 H (10-20) Glucose 99 (70-99(Fasting)) mg/dl POC Glucose (other) 98 (70-99) mg/dl Calcium 8.6 (8.6-10.3) mg/dl POC Ioniz Calcium Diallo 1.08 L (1.12-1.32) mmol/l Magnesium 2.2 (1.7-2.4) mg/dl Total Bilirubin 0.4 (0.2-1.0) mg/dl Direct Bilirubin 0.1 (0-0.2) mg/dl AST 69 H (13-39) U/L ALT 50 (7-52) U/L Alkaline Phosphatase 49 (34-104) U/L Troponin I High Sens 13.7 (0-14) pg/ml Total Protein 6.7 (6.0-8.3) gm/dl Albumin 3.8 (3.4-5.0) gm/dl Globulin 2.9 (2.5-4.0) gm/dl Albumin/Globulin Ratio 1.3 (0.9-2) Lipase 18 (11-82) U/L Procalcitonin 0.11 (0-0.5) ng/ml Adenovirus (PCR) Not Detected (NotDetected) B. pertussis DNA (PCR) Not Detected (NotDetected) B.parapertussis DNA PCR Not Detected (NotDetected) C. pneumoniae DNA (PCR) Not Detected (NotDetected) Coronavirus OC43 (PCR) Not Detected (NotDetected) Coronavirus HKU1 (PCR) Not Detected (NotDetected) Coronavirus 229E (PCR) Not Detected (NotDetected) SARS-CoV-2 (PCR) Not Detected (NotDetected) Coronavirus NL63 (PCR) Not Detected (NotDetected) Human Metapneumovir PCR Not Detected (NotDetected) Influenza Type A (PCR) Not Detected (NotDetected) Influenza Type B (PCR) Not Detected (NotDetected) M. pneumoniae (PCR) Not Detected (NotDetected) Parainfluenza 1 (PCR) Not Detected (NotDetected) Parainfluenza 2 (PCR) Not Detected (NotDetected) Parainfluenza 3 (PCR) Not Detected (NotDetected) Parainfluenza 4 (PCR) Not Detected (NotDetected) RSV (PCR) Not Detected (NotDetected) Entero/Rhino (PCR) Not Detected (NotDetected) Administered Medications Acetaminophen (Acetaminophen 325 Mg Tab) 650 mg PO Q4H PRN PRN Reason: Pain or Fever Stop: 01/03/25 20:44 Last Admin: 12/04/24 21:30 Dose: 650 mg Documented By: MORELIA Miscellaneous (Vytulza Opth--Order Awaiting Action) 1 each N/A QS [facility] Stop: 01/03/25 15:59 Last Admin: 12/04/24 21:28 Dose: Not Given Documented By: MORELIA Ondansetron HCl (Ondansetron Inj 2 Mg/Ml 2 Ml Vial) 4 mg IV Q4H PRN PRN Reason: Nausea Stop: 01/03/25 15:42 Last Admin: 12/04/24 21:24 Dose: 4 mg Documented By: MORELIA Paroxetine HCl (Paroxetine Hcl 20 Mg Tab) 20 mg PO BID TAM Stop: 01/03/25 20:59 Last Admin: 12/04/24 21:30 Dose: 20 mg Documented By: MORELIA Pravastatin Sodium (Pravastatin Sod 20 Mg Tab) 20 mg PO QPM TAM Stop: 01/03/25 20:59 Last Admin: 12/04/24 21:30 Dose: 20 mg Documented By: MORELIA Verapamil HCl (Verapamil Hcl 120 Mg Tabcr) 120 mg PO HS TAM Stop: 01/03/25 20:59 Last Admin: 12/04/24 21:30 Dose: 120 mg Documented By: MORELIA Discontinued Medications Sodium Chloride (Nss) 500 mls @ 999 mls/hr IV .Q31M ONE Stop: 12/04/24 10:33 Last Infusion: 12/04/24 10:56 Dose: Infused Documented By: Admin: 12/04/24 10:16 Dose: 999 mls/hr Documented By: MENDOZA Famotidine (Pepcid 20mg Iv Push) 20 mg in 5 mls @ 2.5 mls/min IV NOW STA Stop: 12/04/24 10:04 Last Admin: 12/04/24 10:17 Dose: 2.5 mls/min Documented By: MENDOZA Acetaminophen (Ofirmev) 1,000 mg in 100 mls @ 400 mls/hr IV NOW STA Stop: 12/04/24 10:17 Last Infusion: 12/04/24 10:56 Dose: Infused Documented By: Admin: 12/04/24 10:18 Dose: 400 mls/hr Documented By: MENDOZA Potassium Chloride (K Bobo / Wtr) 10 meq in 100 mls @ 100 mls/hr IV Q1H TAM Stop: 12/04/24 14:29 Last Infusion: 12/04/24 15:40 Dose: Infused Documented By: Admin: 12/04/24 14:30 Dose: 100 mls/hr Documented By: Infusion: 12/04/24 14:30 Dose: Infused Documented By: Admin: 12/04/24 13:14 Dose: 100 mls/hr Documented By: CAMI Sodium Chloride (Nss) 500 mls @ 999 mls/hr IV .Q31M ONE Stop: 12/04/24 12:59 Last Infusion: 12/04/24 14:15 Dose: Infused Documented By: Admin: 12/04/24 13:15 Dose: 999 mls/hr Documented By: CAMI Sodium Chloride (Nss) 1,000 mls @ 125 mls/hr IV .Q8H [facility] Stop: 12/04/24 22:44 Last Infusion: 12/04/24 17:01 Dose: 0 mls/hr Documented By: Admin: 12/04/24 14:45 Dose: 125 mls/hr Documented By: CAMI Ioversol (Optiray 320 100ml) 94 ml IV ONCE ONE Stop: 12/04/24 10:56 Last Admin: 12/04/24 10:56 Dose: 94 ml Documented By: YAJAIRA Ondansetron HCl (Ondansetron Inj 2 Mg/Ml 2 Ml Vial) 4 mg IV NOW STA Stop: 12/04/24 10:04 Last Admin: 12/04/24 10:18 Dose: 4 mg Documented By: MENDOZA Imaging Data Radiologist's Impression: Chest X-Ray 12/04/24 10:02 XR chest 1V portable CLINICAL HISTORY: vomiting, abd pain COMPARISON STUDY: 06/05/2022 FINDINGS: Single view chest is unchanged. There is no airspace opacity or pleural effusion. There is no pneumothorax or atelectasis. Heart and pulmonary vascularity are unremarkable. There continues to be right diaphragmatic elevation with no interval change. IMPRESSION: Stable exam. No acute process identified. Chronically elevated right hemidiaphragm. ACT 112: Negative or not required by law. Electronically signed by: Blanca Elias M.D. 12/04/2024 10:33 AM Abdomen/Pelvis CT 12/04/24 10:04 CT OF THE ABDOMEN AND PELVIS WITH CONTRAST CLINICAL HISTORY: Abdominal pain, nausea, vomiting and diarrhea. COMPARISON STUDY: CT of the abdomen and pelvis March 15, 2021 and MRCP June 11, 2021. TECHNIQUE: Following IV administration of 94 mL of Optiray, axial images of the abdomen and pelvis were obtained from the lung bases to the proximal femurs. Images were reviewed in the axial, sagittal, and coronal planes. IV contrast was administered without complication. Automated exposure control was utilized for the study. A dose lowering technique was utilized adhering to the principles of ALARA. CT DOSE: 1075.24 mGy.cm FINDINGS: No pneumatosis, free air or portal venous gas is present. Mild biliary ductal dilatation is likely related to cholecystectomy. There is hepatic steatosis. No hepatic lesions are present. The spleen and adrenal glands are unremarkable. Pancreatic parenchymal calcifications are present. There is no pancreatic ductal dilatation. No peripancreatic infiltration is present. Water attenuation right renal lesions represent cysts. Multiple right renal calculi measure up to 5 mm. There are no ureteral calculi. There is an 8 mm left renal pelvis calculus, similar to prior exam. Left-sided urothelial thickening is again noted. This is chronic. There is no hydronephrosis. There is no evidence for a bowel obstruction. Sigmoid diverticulosis is noted. There is no evidence for acute diverticulitis. There is no lymphadenopathy. There are no fluid collections. Right colon is mildly fluid-filled. The appendix is not visualized. Narrowing of the proximal celiac axis with poststenotic dilatation is unchanged. Celiac axis measures 1.3 cm. The findings suggest compression by the median arcuate ligament. IMPRESSION: 1. No bowel obstruction. No bowel wall thickening. 2. Right nephrolithiasis. 8 mm left renal pelvis calculus, unchanged. Left-sided urothelial thickening which is also unchanged. No ureteral calculi. No hydronephrosis. 3. CT findings suggestive of chronic pancreatitis. No evidence for acute pancreatitis. ACT 112: Negative or not required by law. Electronically signed by: Brian Ibarra M.D. 12/04/2024 11:15 AM Discharge Plan Visit Data Chief Complaint: Illness Stated Complaint: ILLNESS ED Provider: Yves Alberto Discharge Problem: Hypoxia, Dehydration, Gastroenteritis due to norovirus Patient Disposition: Admitted As Inpatient Discharge Instructions Interventions: ED Discharge Assessment Last Done: 12/04/24 15:43
[2024-12-04] MEDS: SODIUM CHLORIDE 0.9% 500 ML IV ONE ×2 (10:16→13:15)
[2024-12-04 10:17] LABS: Basophils # (auto) 0.01 K/uL (0.00-0.20); Basophils % (auto) 0.2 %; Hematocrit (blood only) 46.9 % (37.0-47.0); Hemoglobin 15.2 g/dl (12.0-16.0); Immature Granulocytes # (auto) 0.01 K/uL (0.01-0.20); Immature Granulocytes % (auto) 0.2 %; Lymphocytes # (auto) 1.68 K/uL (1.20-3.40); Lymphocytes % (auto) 28.7 %; Mean Corpuscular Hemoglobin 27.8 pg (25.0-34.0); Mean Corpuscular Hgb Conc 32.4 g/dL (32.0-36.0); Mean Corpuscular Volume 85.9 fL (80.0-100.0); Monocytes # (auto) 0.94 K/uL (0.11-0.59); Neutrophils # (auto) 3.22 K/uL (1.40-6.50); Neutrophils % (auto) 54.9 %; Platelet Count 179 K/uL (130-400); RDW Coefficient of Variation 13.3 % (11.5-14.5); RDW Standard Deviation 41.1 fL (36.4-46.3); Red Blood Count 5.46 M/uL (4.20-5.40); White Blood Count 5.86 K/ul (4.8-10.8)
[2024-12-04] MEDS: FAMOTIDINE 20MG IV PUSH 20 MG/5 ML SYR IV STA (10:17)
[2024-12-04] MEDS: ACETAMINOPHEN 1,000 MG/100 ML VIAL IV STA (10:18)
[2024-12-04] MEDS: ONDANSETRON INJ 2 MG/ML 2 ML VIAL IV STA (10:18)
[2024-12-04 10:19] LABS: iSTAT Hemoglobin 15.6 g/dl (12.0-16.0); iSTAT Ionized Calcium 1.08 mmol/l (1.12-1.32); iSTAT Potassium 2.9 mmol/L (3.3-5.0)
--- NOTE | 2024-12-04 10:34 | XRay Report ---
XR chest 1V portable CLINICAL HISTORY: vomiting, abd pain COMPARISON STUDY: 06/05/2022 FINDINGS: Single view chest is unchanged. There is no airspace opacity or pleural effusion. There is no pneumothorax or atelectasis. Heart and pulmonary vascularity are unremarkable. There continues to be right diaphragmatic elevation with no interval change. IMPRESSION: Stable exam. No acute process identified. Chronically elevated right hemidiaphragm. ACT 112: Negative or not required by law. Electronically signed by: Blanca Elias M.D. 12/04/2024 10:33 AM
[2024-12-04 10:36] LABS: Albumin Globulin Ratio 1.3 (0.9-2); Albumin Level 3.8 gm/dl (3.4-5.0); BUN Creatinine Ratio 33.3 (10-20); Bilirubin Direct 0.1 mg/dl (0-0.2); Bilirubin,Total 0.4 mg/dl (0.2-1.0); Calcium 8.6 mg/dl (8.6-10.3); Creatinine Clr Calc Pharmacy 43.5 ml/min; Globulin 2.9 gm/dl (2.5-4.0); Potassium 3.1 mmol/L (3.5-5.1); Total Protein 6.7 gm/dl (6.0-8.3)
[2024-12-04 10:42] LABS: Troponin I High Sensitivity 13.7 pg/ml (0-14)
[2024-12-04 10:45] LABS: Prothrombin Time 10.4 Seconds (9.0-12.0)
[2024-12-04] MEDS: OPTIRAY 320 100ml IV ONE (10:56)
[2024-12-04 11:12] LABS: Adenovirus PCR Not Detected (NotDetected); Bordetella parapertussis PCR Not Detected (NotDetected); Bordetella pertussis PCR Not Detected (NotDetected); Chlamydia pneumoniae PCR Not Detected (NotDetected); Coronavirus 229E PCR Not Detected (NotDetected); Coronavirus CoV-2 (COVID19)PCR Not Detected (NotDetected); Coronavirus HKU1 PCR Not Detected (NotDetected); Coronavirus NL63 PCR Not Detected (NotDetected); Coronavirus OC43PCR Not Detected (NotDetected); Human Metapneumovirus PCR Not Detected (NotDetected); Influenza A PCR Not Detected (NotDetected); Influenza B PCR Not Detected (NotDetected); Mycoplasma pneumoniae PCR Not Detected (NotDetected); Parainfluenza Virus 1 PCR Not Detected (NotDetected); Parainfluenza Virus 2 PCR Not Detected (NotDetected); Parainfluenza Virus 3 PCR Not Detected (NotDetected); Parainfluenza Virus 4 PCR Not Detected (NotDetected); Respiratory Syncytial VirusPCR Not Detected (NotDetected); Rhinovirus/Enterovirus PCR Not Detected (NotDetected)
--- NOTE | 2024-12-04 11:16 | CT Scan Report ---
CT OF THE ABDOMEN AND PELVIS WITH CONTRAST CLINICAL HISTORY: Abdominal pain, nausea, vomiting and diarrhea. COMPARISON STUDY: CT of the abdomen and pelvis March 15, 2021 and MRCP June 11, 2021. TECHNIQUE: Following IV administration of 94 mL of Optiray, axial images of the abdomen and pelvis we re obtained from the lung bases to the proximal femurs. Images were reviewed in the axial, sagittal, and coronal planes. IV contrast was administered without complication. Automated exposure control wa s utilized for the study. A dose lowering technique was utilized adhering to the principles of ALARA . CT DOSE: 1075.24 mGy.cm FINDINGS: No pneumatosis, free air or portal venous gas is present. Mild biliary ductal dilatation is likely related to cholecystectomy. There is hepatic steatosis. No hepatic lesions are present. The s pleen and adrenal glands are unremarkable. Pancreatic parenchymal calcifications are present. There i s no pancreatic ductal dilatation. No peripancreatic infiltration is present. Water attenuation right renal lesions represent cysts. Multiple right renal calculi measure up to 5 mm. There are no uretera l calculi. There is an 8 mm left renal pelvis calculus, similar to prior exam. Left-sided urothelial thickening is again noted. This is chronic. There is no hydronephrosis. There is no evidence for a griffin wel obstruction. Sigmoid diverticulosis is noted. There is no evidence for acute diverticulitis. Ther e is no lymphadenopathy. There are no fluid collections. Right colon is mildly fluid-filled. The appe ndix is not visualized. Narrowing of the proximal celiac axis with poststenotic dilatation is unchang ed. Celiac axis measures 1.3 cm. The findings suggest compression by the median arcuate ligament. IMPRESSION: 1. No bowel obstruction. No bowel wall thickening. 2. Right nephrolithiasis. 8 mm left renal pelvis calculus, unchanged. Left-sided urothelial thickenin g which is also unchanged. No ureteral calculi. No hydronephrosis. 3. CT findings suggestive of chronic pancreatitis. No evidence for acute pancreatitis. ACT 112: Negative or not required by law. Electronically signed by: Brian Ibarra M.D. 12/04/2024 11:15 AM
--- NOTE | 2024-12-04 11:47 | Electrocardiogram Report ---
Test Reason : Blood Pressure : */* mmHG Vent. Rate : 86 BPM Atrial Rate : 86 BPM P-R Int : 204 ms QRS Dur : 126 ms QT Int : 456 ms P-R-T Axes : 25 11 -12 degrees QTcB Int : 545 ms Normal sinus rhythm Right bundle branch block T wave abnormality, consider inferior ischemia Abnormal ECG When compared with ECG of 05-Jun-2022 16:36, T wave inversion now evident in Anterior leads QT has lengthened Confirmed by William Batres ([id number]) on 12/04/2024 11:46:57 AM Referred By: Confirmed By: William Batres
--- NOTE | 2024-12-04 12:49 | History & Physical Report ---
Date of Service December 04, 2024 Assessment & Plan (1) Nausea, vomiting and diarrhea: Plan: 4 days of symptoms Stool and C. difficile PCR Will defer loperamide pending result of this Ondansetron 4 mg q.4 hourly PRN for nausea, notably had delirium to Phenergan on prior hospitalization therefore will avoid this (2) Prolonged QT interval: Plan: Reduce paroxetine to 20 mg p.o. BID QTc less than 550 therefore okay to give ondansetron as needed and will monitor QTc with daily EKGs Plan Hypothyroidism - TSH normal in May, continue levothyroxine 100 mcg PO VTE prophylaxis - Lovenox 40mg SQ daily Diet - clear liquids, advance as tolerated Disposition - admit to med/surg Admission and Anticipated Discharge Date Admission Date: December 04, 2024 History of Present Illness Chief Complaint: Nausea, vomiting, diarrhea Primary Care Provider: Sravanthi Hadley MD Danika Roque is a 89-year-old female who presents to the ER with 4 days of nausea, vomiting and diarrhea. She is generally weak. Hypoxic on arrival for EMS with 88% O2 sats on room air. She has been unable to tolerate p.o. intake at this time. Epigastric pain only with vomiting and she is currently pain-free. No melena or hematochezia. No reflux, acid taste, dysphagia or odynophagia. Diarrhea watery. No antibiotics in the last month or history of c. diff. No respiratory symptoms, urinary symptoms. Having chills but no objective fevers as not taking her temperature. Allergies Allergy/AdvReac Type Severity Reaction Status Date / Time No Known Allergies Allergy Verified 12/04/24 13:06 Home Medications Medication Instructions Recorded Confirmed Type calcium 600 mg (as carbonate)-vit 1 tab PO QAM 06/06/19 12/04/24 History D3 20 mcg (800 unit) chewable tablet (Caltrate plus D) latanoprostene bunod 0.024 % eye 1 drp OPB QPM 05/31/24 12/04/24 History drops (Vyzulta) pravastatin 20 mg tablet 20 mg PO QPM #100 tabs 10/02/24 12/04/24 Rx levothyroxine 100 mcg tablet 100 mcg PO DAILYBB 12/04/24 12/04/24 History paroxetine HCl 30 mg tablet 30 mg PO BID 12/04/24 12/04/24 History verapamil 120 mg tablet,extended 120 mg PO HS 12/04/24 12/04/24 History release verapamil 240 mg tablet,extended 240 mg PO QAM 12/04/24 12/04/24 History release Past Med/Surg History Problem List (Updated 12/04/24 @ 23:03 by Fernando Valencia MD) Prolonged QT interval Gastroenteritis (Acute) Nausea, vomiting and diarrhea Impaired fasting glucose Gastritis Chronic migraine Dyslipidemia (Chronic) Hypertension (Chronic) Hypothyroidism (Chronic) Medical History Pancreatitis due to biliary obstruction Acute pancreatitis Nephrolithiasis Osteopenia Renal cyst Obstructive uropathy Surgical History History of lithotripsy (~2013) History of cataract surgery (~2016) History of colonoscopy (~2003) History of total abdominal hysterectomy History of tonsillectomy and adenoidectomy History of laparoscopic cholecystectomy Family History Mother Graves' disease Grandmother Hypertension Uncle Hypertension Mother Kidney stones Sister Breast cancer Social History (Updated 09/26/24 @ 14:50 by KORI Gautam) Smoking Status: Never smoker Second Hand Exposure: No; Do You Dip or Chew Tobacco: No; Hx Alcohol Use: No Hx Substance Use: No Preferred Language: Nicaraguan Communication Ability: Effective Bowling Alley Manager Required: No Beliefs That Will Affect Care: None marital status: / Current Living Situation: Alone current occupational status: retired Other Information That Helps Us Care for You: No Feels Safe at Home: Yes Safety Concerns: Feels Safe At This Time Childhood Exposure to Second-Hand Smoke: Yes Diet: regular Dental Care, Regularly: Yes Physical Activity Frequency: 5-6 Times per Week Seatbelt Use: always Assistive Devices: Cane and Glasses Review of Systems Review of Systems: All systems reviewed & are unremarkable except as noted in HPI & below Physical Exam Constitutional: WD/WN, vitals as above ENMT: external ear and nose normal, oropharynx normal Respiratory: normal respiratory effort, lungs clear to auscultation Cardiovascular: RRR, no murmur, no edema Gastrointestinal (Abdomen): normal bowel sounds, soft, nontender, no hepatosplenomegaly Musculoskeletal: no cyanosis or clubbing, extremities motor strength 5/5 Skin: no rashes, warm and dry Neurologic: moves all extremities and awake; not confused Psychiatric: A+Ox3, euthymic affect Results & Data Results & Data Vital Signs (Past 12 Hours) Vital Signs Temp Pulse Pulse Resp BP BP Pulse Ox 12/04/24 11:47 73 18 139/90 97 12/04/24 10:56 87 L 12/04/24 10:12 90 12/04/24 10:07 87 12/04/24 09:57 91 H 23 158/105 H 90 12/04/24 09:54 36.7 C 94 H 20 158/105 H 90 O2 Del Method O2 Flow Rate 12/04/24 11:47 Nasal Cannula 2 12/04/24 10:56 Nasal Cannula 2 12/04/24 10:12 Room Air 12/04/24 10:07 12/04/24 09:57 Room Air 12/04/24 09:54 Room Air Laboratory Results Abnormal lab results 12/04/24 12/04/24 Range/Units 10:00 10:05 RBC 5.46 H (4.20-5.40) M/uL Kidder # (Auto) 0.94 H (0.11-0.59) K/uL POC Potassium 2.9 L (3.3-5.0) mmol/L Potassium 3.1 L (3.5-5.1) mmol/L POC BUN 28 H (7-18) mg/dl BUN 32 H (6-23) mg/dl BUN/Creatinine Ratio 33.3 H (10-20) POC Ioniz Calcium Diallo 1.08 L (1.12-1.32) mmol/l AST 69 H (13-39) U/L Diagnostic Findings XR chest 1V portable CLINICAL HISTORY: vomiting, abd pain COMPARISON STUDY: 06/05/2022 FINDINGS: Single view chest is unchanged. There is no airspace opacity or pleural effusion. There is no pneumothorax or atelectasis. Heart and pulmonary vascularity are unremarkable. There continues to be right diaphragmatic e levation with no interval change. IMPRESSION: Stable exam. No acute process identified. Chronically elevated right hemidiaphragm. CT OF THE ABDOMEN AND PELVIS WITH CONTRAST CLINICAL HISTORY: Abdominal pain, nausea, vomiting and diarrhea. COMPARISON STUDY: CT of the abdomen and pelvis March 15, 2021 and MRCP June 11, 2021. TECHNIQUE: Following IV administration of 94 mL of Optiray, axial images of the abdomen and pelvis were obtained from the lung bases to the proximal femurs. Images were reviewed in the axial, sagittal, and coronal planes. IV contrast was administered without complication. Automated exposure control was utilized for the study. A dose lowering technique was utilized adhering to the principles of ALARA. CT DOSE: 1075.24 mGy.cm FINDINGS: No pneumatosis, free air or portal venous gas is present. Mild biliary ductal dilatation is likely related to cholecystectomy. There is hepatic steatosis. No hepatic lesions are present. The spleen and adrenal glands are unremarkable. Pancreatic parenchymal calcifications are present. There is no pancreatic ductal dilatation. No peripancreatic infiltration is present. Water attenuation right renal lesions represent cysts. Multiple right renal calculi measure up to 5 mm. There are no ureteral calculi. There is an 8 mm left renal pelvis calculus, similar to prior exam. Left-sided urothelial thickening is agai n noted. This is chronic. There is no hydronephrosis. There is no evidence for a bowel obstruction. Sigmoid diverticulosis is noted. There is no evidence for acute diverticulitis. There is no lymphadenopathy. There are no fluid collections. Right colon is mildly fluid-filled. The appendix is not visualized. Narrowing of the proximal celiac axis with poststenotic dilatation is unchanged. Celiac axis measures 1.3 cm. The findings suggest compression by the median arcuate ligament. IMPRESSION: 1. No bowel obstruction. No bowel wall thickening. 2. Right nephrolithiasis. 8 mm left renal pelvis calculus, unchanged. Left-sided urothelial thickening which is also unchanged. No ureteral calculi. No hydronephrosis. 3. CT findings suggestive of chronic pancreatitis. No evidence for acute pancreatitis. Medications Administered ER medications given: Normal saline 500 mL bolus Famotidine 20 mg IV Ondansetron 4 mg IV Acetaminophen 1000 mg IV Normal saline 500 mL bolus Potassium chloride 10 mEq IV x 2 ECG Rate (beats per minute): 86 Rhythm: normal sinus Findings: + other (T wave flattening inferiorly) and + RBBB Comparison ECG Date: from (June 05, 2022) Change: the following changes noted (T wave inversion now evident in anterior leads, QTc has lengthened at 545 ms) Code Status & VTE Plan Code Status Full VTE Prophylaxis Plan VTE Prophylaxis will be ordered: Yes PG Care Time/CCT Total # of Minutes Spent Total Time Spent with Patient: Total time spent is greater than 50% in coordination of care (as documented) at patient's floor/unit and/or counseling patient: Coding Level of Care Code 51357 INT INP/OBS CARE 2/55MIN Diagnoses Nausea, vomiting and diarrhea R11.2; R19.7 Prolonged QT interval R94.31
[2024-12-04 13:05] LABS: Magnesium 2.2 mg/dl (1.7-2.4)
[2024-12-04] MEDS: POTASSIUM CHLORIDE / WTR 10 MEQ/100 ML PLCT IV SCH (13:14)
[2024-12-04] MEDS: SODIUM CHLORIDE 0.9% 1,000 ML IV SCH (14:45)
[2024-12-04 20:30] LABS: Adenovirus F 40/41 PCR Not Detected (NotDetected); Astrovirus PCR Not Detected (NotDetected); Campylobacter PCR Not Detected (NotDetected); Cryptosporidium PCR Not Detected (NotDetected); Cyclospora cayetanensis PCR Not Detected (NotDetected); Entamoeba histolytica PCR Not Detected (NotDetected); Enteroaggregative E.coli(EAEC) Not Detected (NotDetected); Enteropathogenic E.coli (EPEC) Not Detected (NotDetected); Enterotoxigenic E.coli (ETEC) Not Detected (NotDetected); Giardia lamblia PCR Not Detected (NotDetected); Plesiomonas shigelloides PCR Not Detected (NotDetected); Rotavirus A PCR Not Detected (NotDetected); Salmonella PCR Not Detected (NotDetected); Sapovirus PCR Not Detected (NotDetected); Shiga-like Toxin E.coli (STEC) Not Detected (NotDetected); Shigella/Enteroinvasive E.coli Not Detected (NotDetected); Vibrio cholerae PCR Not Detected (NotDetected); Vibrio species PCR Not Detected (NotDetected); Yersinia enterocolitica PCR Not Detected (NotDetected)
[2024-12-04 20:35] LABS: Norovirus GI/GII PCR DETECTED (NotDetected)
[2024-12-04] MEDS ORDERED: PARoxetine HCL 10 MG TAB PO SCH (21:00)
[2024-12-04] MEDS ORDERED: PARoxetine HCL 20 MG TAB PO SCH (21:00)
[2024-12-04] MEDS: ONDANSETRON INJ 2 MG/ML 2 ML VIAL IV PRN (21:24)
[2024-12-04] MEDS: VERAPAMIL HCL 120 MG TABCR PO SCH (21:30)
[2024-12-04] MEDS: ACETAMINOPHEN 325 MG TAB PO PRN (21:30)
[2024-12-04] MEDS: PRAVASTATIN SOD 20 MG TAB PO SCH (21:30)
[2024-12-04] MEDS: PARoxetine HCL 20 MG TAB PO SCH (21:30)
[2024-12-05] MEDS: POTASSIUM CHLORIDE 40 MEQ in SODIUM CHLORIDE 0.9% 1,000 ML IV SCH (01:12)
[2024-12-05] MEDS: LOPERAMIDE HCL 2 MG CAP PO PRN (05:25)
[2024-12-05] MEDS: LEVOTHYROXINE SODIUM 100 MCG TABLET PO SCH (05:30)
[2024-12-05] MEDS: VERAPAMIL HCL 240 MG TABCR PO SCH (08:03)
[2024-12-05 08:27] LABS: Appearance Urine Clear (Clear); Bacteria Urine Automated 4+ (None Seen); Bilirubin Urine Negative (Negative); Blood Urine Trace (Negative); Cast Urine Automated 0-2 /lpf (0-2); Color Urine Yellow; Epithelial Cell Urine Auto 0-2 /hpf (0-2); Glucose Urine UA Negative (Negative); Ketones Urine Trace (Negative); Leukocyte Esterase Urine Negative (Negative); Nitrite Urine Positive (Negative); Protein Urine Trace (Negative); Specific Gravity Urine > 1.045 (1.000-1.030); Urobilinogen Urine Negative (Negative); WBC Urine Automated 0-5 /hpf (0-5)
[2024-12-05] MEDS: ENOXAPARIN INJ 40 MG/0.4 ML SYR SQ SCH (08:55)
[2024-12-05] MEDS ORDERED: PARoxetine HCL 20 MG TAB PO SCH (09:00)
[2024-12-05] MEDS ORDERED: PARoxetine HCL 10 MG TAB PO SCH (09:00)
[2024-12-05 10:31] LABS: BUN Creatinine Ratio 22.5 (10-20); Calcium 7.5 mg/dl (8.6-10.3); Creatinine Clr Calc Pharmacy 58.6 ml/min; Magnesium 1.9 mg/dl (1.7-2.4); Potassium 3.1 mmol/L (3.5-5.1)
[2024-12-05] MEDS: POTASSIUM CHLORIDE CRTAB 20 MEQ TABCR PO STA (12:55)
[2024-12-05] MEDS: POTASSIUM CHLORIDE CRTAB 20 MEQ TABCR PO ONE (17:45)
--- NOTE | 2024-12-05 19:14 | Hospitalist Progress Note ---
Date of Service December 05, 2024 Assessment & Plan (1) Norovirus: (2) Hypokalemia due to excessive gastrointestinal loss of potassium: (3) Prolonged QT interval: (4) Hypothyroidism: (5) Hypertension: (6) Dyslipidemia: (7) Chronic migraine: Plan Danika is an 84-year-old female with past medical history of hypothyroidism, hypertension, hyperlipidemia, prediabetes, and migraine. She presented on 12/04/2024 with 4 days of nausea, vomiting, and diarrhea with associated generalized weakness. Hypoxic on arrival for EMS with 88% O2 sats on room air #Norovirus/Hypokalemia - Stool PCR positive for Norovirus; C. diff negative - Continue ondansetron 4 mg Q4H PRN nausea, notably had delirium to Phenergan on prior hospitalization therefore will avoid this - Hypokalemia suspect secondary to GI loss, repleted with 40 mg PO x2 12/05 -- monitor with AM labs. Mag WNL - Continues on clear liquid diet, advance as tolerated - PT/OT consulted - Urine culture pending #Prolonged QT interval - Reduced paroxetine to 20 mg p.o. BID (previously on 30 mg BID) - QTc less than 550 therefore okay to give ondansetron as needed and will monitor QTc with daily EKGs #Hypothyroidism - Last TSH normal in May 2024 - Continue levothyroxine 100 mcg daily #Hypertension - Chronic, stable - Continue verapamil 360 mg daily #Dyslipidemia - Last lipid panel May 2024 with LDL 87 - Continue pravastatin 20 mg daily #Migraine - No recent attacks - Continue verapamil 360 mg daily and Paxil 20 mg BID for prevention VTE prophylaxis - Lovenox 40mg SQ daily Diet - clear liquids, advance as tolerated Disposition - continue inpatient stay while repleting electrolytes, advancing diet, waiting urine culture results, awaiting PT/OT dharmesh Independently reviewed outpatient provider notes Admission and Anticipated Discharge Date Admission Date: December 04, 2024 Supervising Physician Co-Signing Physician Notes Attending Attestation - Chart reviewed, care plan d/w PHAM Walsh. I agree w/ the crawford components of her documentation. Fernando Ruiz MD Subjective Patient seen and evaluated at bedside. She continues to have diarrhea which she describes as brown liquid, denies any blood. She reports her nausea resolves with antiemetic medication. She denies any vomiting today. She notes some intermittent abdominal cramping, though denies any at this time. She reports she has been staying hydrated with oral fluids. She has not yet been evaluated by PT/OT. No additional complaints or concerns at this time. Results & Data Results & Data Vital Signs (Past 12 Hours) Vital Signs Temp Pulse Resp BP Pulse Ox O2 Del Method O2 Flow Rate 12/05/24 14:17 97.9 F 60 18 121/71 94 Nasal Cannula 2 12/05/24 09:50 Nasal Cannula 2 12/05/24 07:54 97.7 F 12/05/24 07:45 62 16 144/64 H 98 Nasal Cannula 1 Laboratory Results Reviewed BMP Reviewed urine culture PG Care Time/CCT Total # of Minutes Spent Total Time Spent with Patient: Total time spent is greater than 50% in coordination of care (as documented) at patient's floor/unit and/or counseling patient: Coding Level of Care Code 79663 SUB INP/OBS CARE 3/50MIN Diagnoses Norovirus A08.11 Hypokalemia due to excessive gastrointestinal loss of potassium E87.6 Prolonged QT interval R94.31 Hypothyroidism E03.9 Hypertension I10 Dyslipidemia E78.5 Chronic migraine G43.709
[2024-12-06 06:37] LABS: BUN Creatinine Ratio 14.1 (10-20); Calcium 8.6 mg/dl (8.6-10.3); Creatinine Clr Calc Pharmacy 58.6 ml/min; Magnesium 1.9 mg/dl (1.7-2.4); Potassium 3.5 mmol/L (3.5-5.1)
[2024-12-06] MEDS: cefTRIAXone SODIUM 2,000 MG/50 ML BAG IV SCH (11:29)
--- NOTE | 2024-12-06 12:41 | Hospitalist Progress Note ---
Date of Service December 06, 2024 Assessment & Plan (1) Norovirus: (2) Hypokalemia due to excessive gastrointestinal loss of potassium: (3) UTI (urinary tract infection): (4) Prolonged QT interval: (5) Hypothyroidism: (6) Hypertension: (7) Dyslipidemia: (8) Chronic migraine: Plan Danika is an 84-year-old female with past medical history of hypothyroidism, hypertension, hyperlipidemia, prediabetes, and migraine. She presented on 12/04/2024 with 4 days of nausea, vomiting, and diarrhea with associated generalized weakness. Hypoxic on arrival for EMS with 88% O2 sats on room air #Norovirus/Hypokalemia - Stool PCR positive for Norovirus; C. diff negative - Continue ondansetron 4 mg Q4H PRN nausea, notably had delirium to Phenergan on prior hospitalization therefore will avoid this - Hypokalemia suspect secondary to GI loss, repleted and augmented appropriately. Mag WNL - Advanced to full liquid diet for dinner, if well-tolerated, plan to advance to low fiber for breakfast 12/07 - PT/OT evaluated & recommended patient return home #UTI - Urine culture - preliminary E. coli - Started Ceftriaxone IV 12/06 - Continue to monitor sensitivities, downgrade to oral antibiotic when resulted #Prolonged QT interval - Reduced paroxetine to 20 mg p.o. BID (previously on 30 mg BID) - QTc less than 550 therefore okay to give ondansetron as needed and will monitor QTc with daily EKGs #Hypothyroidism - Last TSH normal in May 2024 - Continue levothyroxine 100 mcg daily #Hypertension - Chronic, stable - Continue verapamil 360 mg daily #Dyslipidemia - Last lipid panel May 2024 with LDL 87 - Continue pravastatin 20 mg daily #Migraine - No recent attacks - Continue verapamil 360 mg daily and Paxil 20 mg BID for prevention VTE prophylaxis - Lovenox 40mg SQ daily Diet - clear liquids, advance as tolerated Disposition - continued inpatient stay while advancing diet, waiting urine culture sensitivities; anticipate discharge home 12/07/24 Admission and Anticipated Discharge Date Admission Date: December 04, 2024 Supervising Physician Co-Signing Physician Notes Attending Attestation - Chart reviewed, care plan d/w PHAM Walsh. I agree w/ the crawford components of her documentation. Fernando Ruiz MD Subjective Patient seen and evaluated at bedside. She reports feeling better today, her bowel movements have slowed down in frequency and are becoming more formed. She denies any further nausea, vomiting, or abdominal pain. She denies any urinary symptoms. Discussed that her urine culture is growing E. coli and she was started on ceftriaxone this morning. Discussed advancing her diet to full liquid for dinner, and if that is well-tolerated, advancing to low fiber for breakfast tomorrow. If breakfast is well tolerated, anticipate discharge home tomorrow. She is agreeable to this plan. No additional complaints or concerns at this time. Physical Exam Physical Exam: General: No acute distress, nondiaphoretic, well-developed, well-nourished. Cardiac: Regular rate and rhythm without murmurs gallops or rubs. Pulm: Clear to auscultation bilaterally without wheezes, rales or rhonchi. No respiratory distress. 94% on room air. Abdominal: Soft, nontender, nondistended. Bowel sounds present. Neuro: A&O x3. No focal neurological deficits. Results & Data Results & Data Vital Signs (Past 12 Hours) Vital Signs Temp Pulse Resp BP Pulse Ox Pulse Ox Pulse Ox 12/06/24 11:48 94 94 12/06/24 10:43 96 12/06/24 07:43 97.5 F L 64 16 151/73 H 92 12/06/24 07:40 Pulse Ox O2 Del Method O2 Flow Rate O2 Flow Rate O2 Flow Rate O2 Flow Rate 12/06/24 11:48 84 L 2 2 0 12/06/24 10:43 12/06/24 07:43 Room Air 12/06/24 07:40 Nasal Cannula 1 Laboratory Results Reviewed BMP, mag Reviewed urine culture PG Care Time/CCT Total # of Minutes Spent Total Time Spent with Patient: Total time spent is greater than 50% in coordination of care (as documented) at patient's floor/unit and/or counseling patient: Coding Level of Care Code 03433 SUB INP/OBS CARE 3/50MIN Diagnoses Norovirus A08.11 Hypokalemia due to excessive gastrointestinal loss of potassium E87.6 UTI (urinary tract infection) N39.0 Prolonged QT interval R94.31 Hypothyroidism E03.9 Hypertension I10 Dyslipidemia E78.5 Chronic migraine G43.709
--- NOTE | 2024-12-06 13:57 | Electrocardiogram Report ---
Test Reason : Blood Pressure : */* mmHG Vent. Rate : 64 BPM Atrial Rate : 64 BPM P-R Int : 224 ms QRS Dur : 128 ms QT Int : 486 ms P-R-T Axes : 28 2 8 degrees QTcB Int : 501 ms Sinus rhythm with 1st degree A-V block Right bundle branch block Abnormal ECG When compared with ECG of 04-Dec-2024 10:15, No significant change Confirmed by William Batres ([id number]) on 12/06/2024 1:57:12 PM Referred By: REFERRED SELF Confirmed By: William Batres
--- NOTE | 2024-12-07 17:41 | Discharge Summary ---
Discharge Summary Date of Service December 07, 2024 Principal Dx & Hospital Course #1 = Principal Diagnosis (1) Norovirus: (2) Hypokalemia due to excessive gastrointestinal loss of potassium: (3) UTI (urinary tract infection): (4) Prolonged QT interval: (5) Hypothyroidism: (6) Hypertension: (7) Dyslipidemia: (8) Chronic migraine: Plan Danika is an 84-year-old female with past medical history of hypothyroidism, hypertension, hyperlipidemia, prediabetes, and migraine. She presented on 12/04/2024 with 4 days of nausea, vomiting, and diarrhea with associated generalized weakness. Hypoxic on arrival for EMS with 88% O2 sats on room air. Tested positive for norovirus on admission, well-tolerated diet advancement throughout hospital stay. Also with acute UTI. She will continue oral antibiotics at home to complete treatment. O2 sats intermittently decreased with activity/ambulation. Respiratory evaluated and recommended 2 L with activity at home. Recommend referral to pulmonology outpatient. #Norovirus/Hypokalemia - Stool PCR positive for Norovirus; C. diff negative - Hypokalemia suspect secondary to GI loss, repleted and augmented appropriately. Mag WNL - Diet advanced to low fiber and well-tolerated. Advance back to regular diet as tolerated at home - PT/OT evaluated & recommended patient return home #UTI - Urine culture revealed pansensitive E. coli - Given Ceftriaxone IV x 2 doses, discharged on Keflex twice daily x 5 days #Hypoxia - Intermittently hypoxic with SpO2 in high 80s with ambulation/activity - 2-Step performed with respiratory team who recommended 2 L via NC with activity at home - CXR revealed elevated right hemidiaphragm, could be contributing to hypoxia - Recommend referral to pulmonology for PFTs, sleep study, possible outpatient chest CT -- asked workforce specialist to make referral prior to discharge #Prolonged QT interval - Reduced paroxetine to 20 mg p.o. BID (previously on 30 mg BID) #Hypothyroidism - Last TSH normal in May 2024 - Continue levothyroxine 100 mcg daily #Hypertension - Chronic, stable - Continue verapamil 360 mg daily #Dyslipidemia - Last lipid panel May 2024 with LDL 87 - Continue pravastatin 20 mg daily #Migraine - No recent attacks - Continue verapamil 360 mg daily and Paxil 20 mg BID for prevention Disposition - discharged home 12/07/24 Notes For Next Care Provider Recommend pulmonology evaluation outpatient; asked workforce specialist to make referral prior to discharge Medication Changes From Visit Paroxetine reduced to 20 mg twice daily (previously on 30 mg twice daily) due to prolonged QTc interval Keflex twice daily x 5 days for UTI Admission HPI Per Admitting Provider Danika Roque is a 89-year-old female who presents to the ER with 4 days of nausea, vomiting and diarrhea. She is generally weak. Hypoxic on arrival for EMS with 88% O2 sats on room air. She has been unable to tolerate p.o. intake at this time. Epigastric pain only with vomiting and she is currently pain-free. No melena or hematochezia. No reflux, acid taste, dysphagia or odynophagia. Diarrhea watery. No antibiotics in the last month or history of c. diff. No respiratory symptoms, urinary symptoms. Having chills but no objective fevers as not taking her temperature. Discharge Exam General: No acute distress, nondiaphoretic, well-developed, well-nourished. Cardiac: Regular rate and rhythm without murmurs gallops or rubs. Pulm: Clear to auscultation bilaterally without wheezes, rales or rhonchi. No respiratory distress. 91% on room air. Abdominal: Soft, nontender, nondistended. Bowel sounds present. Neuro: A&O x3. No focal neurological deficits. Discharge Plan Discharge Items Patient Disposition: Home - Home Health Services Reason For Visit: NAUSEA VOMITING DIARRHEA Discharge Diagnosis: Norovirus UTI Hypoxia with ambulation Activity: Resume your previous activity Non-emergency contact: Primary Care Provider Call non-emergency contact if: you have any medication questions and your symptoms worsen Follow-up/Referrals: Sravanthi Hadley MD [Primary Care Provider] - 12/14/24 11:30 am (Follow-up as scheduled) Diet: Low Fiber and Other - See Diet Comment Diet Comment: Advance as tolerated back to your regular diet Addtl Attending Provider Instructions: Albin Garnica were admitted to the hospital with norovirus infection. This is what caused your symptoms of nausea, vomiting, diarrhea, and generalized weakness. You were also found to have a urinary tract infection (UTI) and were started on an antibiotic while in the hospital and will continue on an oral antibiotic at home. Additionally, your oxygen saturation has intermittently been below normal. You were evaluated by the respiratory team who recommended that you wear 2 L of supplemental oxygen with activity. This has been set up for you prior to discharge. Upon discharge from the hospital: * Take Keflex (oral antibiotic) twice daily x 5 days. This is to complete treatment for your UTI. Is it is important to complete the course of antibiotics even if you feel better. Not finishing your antibiotics can result in the infection returning and/or making future infections harder to treat. * Use 2L oxygen via nasal cannula with activity. * Follow a low fiber diet for the next couple days, then advance back to your regular diet as tolerated. * It is recommended that your paroxetine dose be reduced to 20 mg twice daily (were previously taking 30 mg twice daily). This is due to your QTc (part of your heart's electrical conduction) interval being slightly greater than normal. * Recommend seeing pulmonology (lung doctor) outpatient for further workup of your intermittently low oxygen levels. A referral has been made on discharge. * Follow-up with your PCP. Your appointment is scheduled for 12/14/2024 at 11:30 AM. Please return to the hospital if you experience any of the following: Persistent nausea with vomiting, persistent diarrhea, unable to tolerate oral intake, chest pain, difficulty breathing, dizziness, passing out, confusion, or any other symptoms concerning for you. It was a pleasure taking care of you while you were in the hospital! Pending Studies at Discharge: No Stand-Alone Forms: My [facility] [employer], Smoking Cessation Medications and DC Order Prescriptions: New paroxetine HCl 20 mg Tablet 20 mg PO BID Qty: 60 0RF Continued pravastatin 20 mg tablet 20 mg PO QPM Qty: 100 3RF Caltrate 600 plus D 600 mg (1,500 mg)-800 unit tablet,chewable 1 tab PO QAM Vyzulta 0.024 % drops 1 drp OPB QPM verapamil 120 mg tablet extended release 120 mg PO HS levothyroxine 100 mcg tablet 100 mcg PO DAILYBB verapamil 240 mg tablet extended release 240 mg PO QAM Discontinued paroxetine HCl 30 mg tablet 30 mg PO BID Rx Instructions: TAKE 1 TABLET BY MOUTH TWICE DAILY [employer]/Other Patient Handouts: Dehydration Admission Data Admit Date/Time: 12/04/24 12:51 Attending Provider: Fernando Ruiz Admit Provider: Fernando Valencia Primary Care Provider: Sravanthi Hadley Other Providers: [facility],Home Healthcare Other Interventions: Discharge Summary Assessment (RN) Last Done: 12/07/24 20:32 Hospital Stay Data Consultations 12/04/24 12:29 ED Decision to Admit Stat Diagnostic Imagining Performed 12/04/24 10:04 CT abd pelvis IV con only Stat Pending Results Patient Have Any Pending Studies at Discharge: No Discharge Instructions Given to Patient (Per Discharging Provider) Danika, You were admitted to the hospital with norovirus infection. This is what caused your symptoms of nausea, vomiting, diarrhea, and generalized weakness. You were also found to have a urinary tract infection (UTI) and were started on an antibiotic while in the hospital and will continue on an oral antibiotic at home. Additionally, your oxygen saturation has intermittently been below normal. You were evaluated by the respiratory team who recommended that you wear 2 L of supplemental oxygen with activity. This has been set up for you prior to discharge. Upon discharge from the hospital: * Take Keflex (oral antibiotic) twice daily x 5 days. This is to complete treatment for your UTI. Is it is important to complete the course of antibiotics even if you feel better. Not finishing your antibiotics can result in the infection returning and/or making future infections harder to treat. * Use 2L oxygen via nasal cannula with activity. * Follow a low fiber diet for the next couple days, then advance back to your regular diet as tolerated. * It is recommended that your paroxetine dose be reduced to 20 mg twice daily (were previously taking 30 mg twice daily). This is due to your QTc (part of your heart's electrical conduction) interval being slightly greater than normal. * Recommend seeing pulmonology (lung doctor) outpatient for further workup of your intermittently low oxygen levels. A referral has been made on discharge. * Follow-up with your PCP. Your appointment is scheduled for 12/14/2024 at 11:30 AM. Please return to the hospital if you experience any of the following: Persistent nausea with vomiting, persistent diarrhea, unable to tolerate oral intake, chest pain, difficulty breathing, dizziness, passing out, confusion, or any other symptoms concerning for you. It was a pleasure taking care of you while you were in the hospital! Supervising Physician Co-Signing Physician Notes Attending Attestation and Discharge Note: Chart reviewed, care plan d/w PHAM Walsh. I agree w/ the crawford components of her discharge documentation. Of note - I did not perform a bedside evaluation or physical exam on day of discharge. 84yo female with hypothyroidism, hypertension, hyperlipidemia, prediabetes, and migraine. Presented with 4 days of nausea, vomiting, weakness, and diarrhea. with associated generalized weakness. Tested positive for norovirus on admission. Received IV fluids & supportive care for her norovirus gastroenteritis. By time of discharge all GI symptoms were improved and she was tolerating a diet. Other issues addressed while here - * e.coli UTI - received IV rocephin, then transitioned to PO keflex * hypoxia - noted at time of admission, and noted intermittently while hospitalized; 2-step ambulatory O2 tested showed need for 2 L NC O2 with activity only Etiology of hypoxia with activity is uncertain Chest x-ray with chronically elevated right hemidiaphragm She has no prior h/o asthma/COPD Advise referral to [facility] [place] P[place]s and other work-up Fernando Ruiz MD Total Time Total Time Spent Total Time Spent (In Minutes): Greater than 30 minutes spent completing this discharge process including direct patient care, medication reconciliation, documentation, review of labs and images, and coordination of care. Coding Level of Care Code 98645 INP/OBS DISCH >30 MIN Diagnoses Norovirus A08.11 Hypokalemia due to excessive gastrointestinal loss of potassium E87.6 UTI (urinary tract infection) N39.0 Prolonged QT interval R94.31 Hypothyroidism E03.9 Hypertension I10 Dyslipidemia E78.5 Chronic migraine G43.704
[2024-12-07 19:41] VITALS: BP 155/85; PULSE 75; RESP 18; TEMP 98.6; O2SAT 93
== END 2024-12-07 21:35 | disposition home health service (06) | DRG 392 ==
LOC: ED 09:49 → SUATTDRO 12:51 → EDINP 12:51 → INTOOBSV 12:51 → 3E 15:43

== ENCOUNTER 2025-04-30 12:34 | Observation (INO) ==
--- NOTE | 2025-04-30 13:01 | Emergency Department Note ---
Impression & Plan Hypoxic, Abdominal pain, Chest pain ED Provider Note NAME: LETHA CASTILLO AGE: 84 SEX: F : 1940 ARRIVES VIA: Ambulance INFORMANT: Patient ED PROVIDER(S): Musa Diallo DO CHIEF COMPLAINT: Abdominal pain HPI: Patient is an 84-year-old female with a past medical history of chronic respiratory failure, hypoxia, prolonged QT, gastritis, dyslipidemia and hypertension who presents to the ER for left lower quadrant abdominal pain which has been coming going for the past few weeks to a month in combination with epigastric abdominal pain which radiates up to the xiphoid which has been present for the past several months. She also notes that there is some pain in that right lower chest wall as well with this. She notes these pains come and go. She has nausea with them. No arm or jaw pain. No shortness of breath. She notes it does not really change with eating or drinking. These are nonexertional. Does admit to a history of cholecystectomy and . ADDITIONAL HISTORY OBTAINED: Additional history obtained from EMS who notes that patient was picked up by EMS and she had no complaints at the time. She noted that she called EMS because she ran out of one of her medications and she can get it filled quicker through the ER. Chronic Medical/Social Conditions Affecting Care: Per HPI PAST MEDICAL HISTORY:See Below PAST SURGICAL HISTORY:See Below FAMILY HISTORY:See Below SOCIAL HISTORY:See Below HOME MEDICATIONS:See Below ALLERGIES:See Below VITALS:See Below PHYSICAL EXAMINATION: GENERAL: Sitting up in bed, alert, well appearing, well nourished, no distress, non-toxic EYE EXAM: normal conjunctiva. OROPHARYNX: mucous membranes are moist NECK: supple, no nuchal rigidity, no adenopathy, non-tender LUNGS: Clear to auscultation. Normal chest wall mechanics HEART: no murmurs, S1 normal and S2 normal ABDOMEN: abdomen soft, tender to palpation in the epigastric and left lower quadrant, normo-active bowel sounds, no masses, no rebound or guarding. BACK: Back is symmetrical on inspection and there is no deformity, no midline tenderness, no CVA tenderness. SKIN: no rashes and no bruising UPPER EXTREMITIES: upper extremities are grossly normal. LOWER EXTREMITIES: No pitting edema. Calves are equal bilaterally NEURO EXAM: Normal sensorium, cranial nerves II-XII grossly intact, normal speech, no gross weakness of arms, no gross weakness of legs. MEDICAL DECISION MAKING: Patient is an 84-year-old female who is an extremely difficult historian who presents to the ER for multiple complaints. IV was established and blood work is obtained. Labs show no significant leukocytosis or anemia. BMP along LFTs and bilirubin was unremarkable. Troponin was negative. Lipase is normal. UA was clean without signs of infection as she only had 0-[address] abdomen pelvis showed no acute pathology. Following returning from CT she received no pain medication as she was found to be hypoxic with a good waveform. She was placed on 2 L nasal cannula. Chest x-ray was clean. Unable to perform angio as she did already received contrast bolus for the abdomen pelvis. Did order duplexes of the lower extremities. Patient remained on oxygen throughout her stay in the ER. Upon review of external records and admission in November 2024 does appear as though she was discharged on oxygen. She has no recollection of this and notes that she has no oxygen at home. At this time the night I do not believe we will be able to obtain the duplexes of the lower extremities and arrange new oxygen at home consequently discussed with the hospitalist. Consults/Care Managements Discussions: Per [facility] Triage Nursing notes reviewed. Limited review of prior medical records performed Vital Signs: reviewed and remarkable for no significant abnormalities Differential diagnosis: Differential diagnoses includes but is not limited to gastritis, peptic ulcer disease, GERD, gallbladder disease, pancreatitis, small bowel obstruction, appendicitis, diverticulitis, hernia, urinary tract infection, torsion, [/ectopic (if female)], perforation, trauma, infectious. ER treatment provided: See below Diagnostics interpreted by me include EKG and cardiac monitoring as listed below: -Cardiac Monitoring: An order was placed for continuous cardiac monitoring. The monitor shows a rate of 70 with sinus rhythm. -ECG: Sinus rhythm rate of 78 Normal axis No PVCs QTc 485 -Laboratory studies:Interpreted by me as stated above in MDM and shown below. Imaging studies: Xrays: As interpreted by me: Portable AP upright 1 view of the chest shows no focal infiltrate CTs show: CT abdomen pelvis showed no acute pathology Duplex of the lower extremities was pending upon admission Procedures:none Critical Care: None Past Med/Surg History Problem List (Updated 04/30/25 @ 18:13 by Musa Diallo DO) Chest pain (Acute) Abdominal pain (Acute) Hypoxic (Acute) Feeling unwell Chronic respiratory failure with hypoxia Restrictive lung disease Elevated hemidiaphragm Acute respiratory failure with hypoxia Norovirus Gastroenteritis due to norovirus (Acute) Hypoxia (Acute) Prolonged QT interval Impaired fasting glucose Gastritis Chronic migraine Dyslipidemia (Chronic) Hypertension (Chronic) Hypothyroidism (Chronic) Medical History Hypokalemia due to excessive gastrointestinal loss of potassium Dehydration Pancreatitis due to biliary obstruction Acute pancreatitis Nephrolithiasis Osteopenia Renal cyst Obstructive uropathy Surgical History History of lithotripsy (~2013) History of cataract surgery (~2016) History of colonoscopy (~2003) History of total abdominal hysterectomy History of tonsillectomy and adenoidectomy History of laparoscopic cholecystectomy Family History Mother Graves' disease Grandmother Hypertension Uncle Hypertension Mother Kidney stones Sister Breast cancer Social History Smoking Status: Never smoker Second Hand Exposure: No; Do You Dip or Chew Tobacco: No; Hx Alcohol Use: No Hx Substance Use: No Preferred Language: Macanese Communication Ability: Effective 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 Beliefs That Will Affect Care: None marital status: / Current Living Situation: Alone current occupational status: retired Feels Safe at Home: Yes Childhood Exposure to Second-Hand Smoke: Yes Diet: regular Dental Care, Regularly: Yes Physical Activity Frequency: 5-6 Times per Week Seatbelt Use: always Assistive Devices: Cane and Stair Lift Allergies Allergies Allergy/AdvReac Type Severity Reaction Status Date / Time No Known Allergies Allergy Verified 04/10/25 14:35 Home Meds Home Medications Medication Instructions Recorded Confirmed calcium 600 mg (as carbonate)-vit 1 tab PO QAM 06/06/19 04/30/25 D3 20 mcg (800 unit) chewable tablet (Caltrate plus D) latanoprostene bunod 0.024 % eye 1 drp OPB UD 05/31/24 04/30/25 drops (Vyzulta) levothyroxine 100 mcg tablet 100 mcg PO DAILYBB 12/04/24 04/30/25 verapamil 120 mg tablet,extended 120 mg PO UD 12/04/24 04/30/25 release verapamil 240 mg tablet,extended 240 mg PO QAM 12/04/24 04/30/25 release Previous Rx's Medication Instructions Recorded Incentive Spirometer #1 ea 12/19/24 Portable Oxygen #1 ea 12/19/24 pravastatin 20 mg tablet 20 mg PO QPM #100 tabs 04/23/25 paroxetine HCl 20 mg tablet 20 mg PO BID #60 tabs 04/25/25 Results & Data (ED) Vital Signs Vital Signs - 24 hr 04/30/25 12:35 04/30/25 12:35 04/30/25 12:44 Temperature 36.9 C Temperature Source Oral Pulse Rate 78 78 85 Pulse Rate [Apical] Pulse Rate [Right Finger] Pulse Rhythm [Apical] Respiratory Rate 24 24 Respiratory Effort / Characteristics Non-Labored Spontaneous Respiratory Depth Normal Respiratory Pattern Regular Blood Pressure 160/123 H Blood Pressure [Right Arm] Blood Pressure Mean 135 Blood Pressure Mean [Right Arm] Pulse Oximetry 94 94 Oxygen Delivery Method Room Air Room Air Oxygen Flow Rate Sepsis Recent Fever Within 48 Hours No Sepsis New/Unexplained Change in Mental Status N/A Sepsis Action Taken by Nursing No Action Required 04/30/25 13:10 04/30/25 14:02 04/30/25 14:02 Temperature Temperature Source Pulse Rate Pulse Rate [Apical] Pulse Rate [Right Finger] 84 Pulse Rhythm [Apical] Respiratory Rate 20 24 Respiratory Effort / Characteristics Non-Labored Spontaneous Respiratory Depth Normal Respiratory Pattern Regular Blood Pressure Blood Pressure [Right Arm] 141/107 H Blood Pressure Mean Blood Pressure Mean [Right Arm] 118 Pulse Oximetry 92 85 L 85 L Oxygen Delivery Method Room Air Room Air Nasal Cannula Oxygen Flow Rate 2 Sepsis Recent Fever Within 48 Hours Sepsis New/Unexplained Change in Mental Status Sepsis Action Taken by Nursing 04/30/25 14:03 04/30/25 14:42 04/30/25 15:30 Temperature Temperature Source Pulse Rate Pulse Rate [Apical] 91 H Pulse Rate [Right Finger] 86 Pulse Rhythm [Apical] Regular Respiratory Rate 24 16 Respiratory Effort / Characteristics Non-Labored Spontaneous Respiratory Depth Normal Respiratory Pattern Regular Blood Pressure Blood Pressure [Right Arm] 172/106 H 189/108 H Blood Pressure Mean Blood Pressure Mean [Right Arm] 128 135 Pulse Oximetry 98 98 96 Oxygen Delivery Method Nasal Cannula Nasal Cannula Nasal Cannula Oxygen Flow Rate 2 2 2 Sepsis Recent Fever Within 48 Hours Sepsis New/Unexplained Change in Mental Status Sepsis Action Taken by Nursing 04/30/25 16:00 Temperature Temperature Source Pulse Rate Pulse Rate [Apical] 96 H Pulse Rate [Right Finger] Pulse Rhythm [Apical] Respiratory Rate 15 Respiratory Effort / Characteristics Respiratory Depth Respiratory Pattern Blood Pressure Blood Pressure [Right Arm] 170/110 H Blood Pressure Mean Blood Pressure Mean [Right Arm] 130 Pulse Oximetry 96 Oxygen Delivery Method Nasal Cannula Oxygen Flow Rate 2 Sepsis Recent Fever Within 48 Hours Sepsis New/Unexplained Change in Mental Status Sepsis Action Taken by Nursing Laboratory Data 04/30/25 12:49 04/30/25 12:49 Lab Results 04/30/25 04/30/25 Range/Units 12:49 14:33 WBC 6.22 (4.8-10.8) K/ul RBC 5.57 H (4.20-5.40) M/uL Hgb 15.7 (12.0-16.0) g/dl Hct 47.2 H (37.0-47.0) % MCV 84.7 (80.0-100.0) fL MCH 28.2 (25.0-34.0) pg MCHC 33.3 (32.0-36.0) g/dL RDW Std Deviation 40.7 (36.4-46.3) fL RDW Coeff of Vishal 13.2 (11.5-14.5) % Plt Count 199 (130-400) K/uL MPV 10.1 (9.4-12.4) fL Immature Gran % (Auto) 0.2 % Neut % (Auto) 52.4 % Lymph % (Auto) 35.0 % [place] % (Auto) 12.1 % Eos % (Auto) 0.0 % Baso % (Auto) 0.3 % Neut # (Auto) 3.26 (1.40-6.50) K/uL Lymph # (Auto) 2.18 (1.20-3.40) K/uL [place] # (Auto) 0.75 H (0.11-0.59) K/uL Eos # (Auto) 0.00 (0.00-0.50) K/uL Baso # (Auto) 0.02 (0.00-0.20) K/uL Immature Gran # (Auto) 0.01 (0.01-0.20) K/uL Sodium 142 (136-145) mmol/L Potassium 3.8 (3.5-5.1) mmol/L Chloride 105 (98-107) mmol/L Carbon Dioxide 28 (21-32) mmol/L Anion Gap 9 (3-11) BUN 23 (6-23) mg/dl Creatinine 0.77 (0.6-1.2) mg/dl Est Cr Clr Drug Dosing 54.5 ml/min eGFR 76.97 BUN/Creatinine Ratio 29.9 H (10-20) Glucose 107 H (70-99(Fasting)) mg/dl Calcium 9.9 (8.6-10.3) mg/dl Total Bilirubin 0.7 (0.2-1.0) mg/dl AST 30 (13-39) U/L ALT 35 (7-52) U/L Alkaline Phosphatase 63 (34-104) U/L Troponin I High Sens 9.9 (0-14) pg/ml Total Protein 7.3 (6.0-8.3) gm/dl Albumin 4.1 (3.4-5.0) gm/dl Globulin 3.2 (2.5-4.0) gm/dl Albumin/Globulin Ratio 1.3 (0.9-2) Lipase 12 (11-82) U/L Urine Color Yellow Urine Appearance Clear (Clear) Urine pH 8.5 H (4.5-7.5) Ur Specific [place] 1.028 (1.000-1.030) Urine Protein Negative (Negative) Urine Glucose (UA) Negative (Negative) Urine Ketones Negative (Negative) Urine Blood Negative (Negative) Urine Nitrite Negative (Negative) Urine Bilirubin Negative (Negative) Urine Urobilinogen Negative (Negative) Ur Leukocyte Esterase 1+ H (Negative) Urine WBC (Auto) 0-5 (0-5) /hpf Urine RBC (Auto) 0-2 (0-2) /hpf U Hyaline Cast (Auto) 0-2 (0-2) /lpf U Epithel Cells (Auto) 0-2 (0-2) /hpf Urine Bacteria (Auto) None Seen (None Seen) Urine Comment Administered Medications Discontinued Medications Acetaminophen (Acetaminophen 325 Mg Tab) 650 mg PO NOW STA Stop: 04/30/25 16:31 Last Admin: 04/30/25 16:33 Dose: 650 mg Documented By: NARINDER Sodium Chloride (Nss) 1,000 mls @ 999 mls/hr IV .Q1H1M ONE Stop: 04/30/25 13:55 Last Infusion: 04/30/25 14:36 Dose: Infused Documented By: Admin: 04/30/25 13:07 Dose: 999 mls/hr Documented By: EVAN Ioversol (Optiray 320 100ml) 93 ml IV ONCE ONE Stop: 04/30/25 13:48 Last Admin: 04/30/25 13:47 Dose: 93 ml Documented By: VINCENZO Imaging Data Radiologist's Impression: Abdomen/Pelvis CT 04/30/25 12:[address] WITH IV CONTRAST CT DOSE: 852.94 mGy.cm HISTORY: Acute left lower quadrant abdominal pain llq and mid abd pain TECHNIQUE: Multiaxial CT images of the abdomen and pelvis were performed following the IV administration of 93 cc of Optiray, A dose lowering technique was utilized adhering to the principles of ALARA. COMPARISON STUDY: CT 12/04/2024 FINDINGS: Coronary artery calcifications. Partially imaged mild right hilar lymphadenopathy. There is mild right hemidiaphragmatic elevation with subsegmental bibasilar atelectasis/scarring. No pneumatosis or pneumoperitoneum. Unremarkable spleen, and adrenal glands. Atrophic pancreas with punctate parenchymal calcifications compatible with chronic pancreatitis. Unremarkable liver. Cholecystectomy with likely postsurgical mild biliary ductal dilation. There are several nonobstructing calculi in the right kidney measuring up to 4 mm. Right renal cysts measure up to 6 cm. Dilated left renal pelvis with associated ostial thickening and adjacent inflammatory stranding. There is a 10 x 8 mm calculus in the dependent left renal pelvis on image 140 series 3. No ureteral calculi or significant hydronephrosis. Pelvic floor relaxation with hysterectomy. Atherosclerosis of the aorta without aneurysm. No lymphadenopathy. No bowel obstruction or bowel wall thickening. Colonic diverticulosis without acute diverticulitis. Tiny fat filled umbilical hernia. No acute fracture. Mild lumbar levoscoliosis. IMPRESSION: 1. Mild left-sided pelviectasis with 10 mm pelvic calculus and associated urothelial thickening with adjacent peripelvic inflammatory stranding. No significant hydronephrosis. Correlate with urinalysis to exclude superimposed infection. 2. Nonobstructing right renal calculi. 3. Cholecystectomy. 4. Colonic diverticulosis. ACT 112: Negative or not required by law. The above report was generated using voice recognition software. It may contain grammatical, syntax or spelling errors. Electronically signed by: Nithin Paris M.D. 04/30/2025 2:02 PM Chest X-Ray 04/30/25 12:55 XR chest 1V portable CLINICAL HISTORY: abd pain COMPARISON STUDY: 12/04/2024 FINDINGS: Stable mild cardiomegaly without pulmonary vascular congestion. Inspiration is shallow. There is interval mild stranding opacity in the lung bases. No other consolidation or pleural effusion. No pneumothorax. IMPRESSION: Shallow inspiration with likely lung base atelectasis. ACT 112: Negative or not required by law. Electronically signed by: Ronald Yao M.D. 04/30/2025 1:25 PM Discharge Plan Visit Data Chief Complaint: Abdominal Pain ED Provider: Musa Diallo Discharge Problem: Hypoxic, Abdominal pain, Chest pain Condition: Fair Forms Stand Alone Forms: [facility] Connotate Prescriptions Prescriptions: No Action pravastatin 20 mg tablet 20 mg PO QPM Qty: 100 3RF paroxetine HCl 20 mg tablet 20 mg PO BID Qty: 60 0RF Caltrate 600 plus D 600 mg (1,500 mg)-800 unit tablet,chewable 1 tab PO QAM Rx Instructions: 04/30-OTC unable to verify Vyzulta 0.024 % drops 1 drp OPB UD Rx Instructions: original:1 drp opb qpm 04/30-last filled 11/07/24 25 day supply (DME) Portable Oxygen Misc See Rx Instructions .MEDSUPPLY Qty: 1 0RF Rx Instructions: Oxygen 1 liters continuous via nasal cannula on exertion with portable concentrator. BRITTANEY 99 (DME) Incentive Spirometer Misc See Rx Instructions .MEDSUPPLY Qty: 1 0RF Rx Instructions: As directed verapamil 120 mg tablet extended release 120 mg PO UD Rx Instructions: original:120mg po hs 04/30-last filled 09/28/24 90 day supply levothyroxine 100 mcg tablet 100 mcg PO DAILYBB verapamil 240 mg tablet extended release 240 mg PO QAM Referrals Referrals: Sravanthi Hadley MD [Primary Care Provider] - Discharge Problem: Abdominal pain Qualifiers: Abdominal location: unspecified location Qualified Code(s): R10.9 - Unspecified abdominal pain Chest pain Qualifiers: Chest pain type: unspecified Qualified Code(s): R07.9 - Chest pain, unspecified
[2025-04-30] MEDS: SODIUM CHLORIDE 0.9% 1,000 ML IV ONE (13:07)
[2025-04-30 13:09] LABS: Basophils # (auto) 0.02 K/uL (0.00-0.20); Basophils % (auto) 0.3 %; Hematocrit (blood only) 47.2 % (37.0-47.0); Hemoglobin 15.7 g/dl (12.0-16.0); Immature Granulocytes # (auto) 0.01 K/uL (0.01-0.20); Immature Granulocytes % (auto) 0.2 %; Lymphocytes # (auto) 2.18 K/uL (1.20-3.40); Mean Corpuscular Hemoglobin 28.2 pg (25.0-34.0); Mean Corpuscular Hgb Conc 33.3 g/dL (32.0-36.0); Mean Corpuscular Volume 84.7 fL (80.0-100.0); Mean Platelet Volume 10.1 fL (9.4-12.4); Monocytes # (auto) 0.75 K/uL (0.11-0.59); Monocytes % (auto) 12.1 %; Neutrophils # (auto) 3.26 K/uL (1.40-6.50); Neutrophils % (auto) 52.4 %; Platelet Count 199 K/uL (130-400); RDW Coefficient of Variation 13.2 % (11.5-14.5); RDW Standard Deviation 40.7 fL (36.4-46.3); Red Blood Count 5.57 M/uL (4.20-5.40); White Blood Count 6.22 K/ul (4.8-10.8)
[2025-04-30 13:26] LABS: Albumin Globulin Ratio 1.3 (0.9-2); BUN Creatinine Ratio 29.9 (10-20); Bilirubin,Total 0.7 mg/dl (0.2-1.0); Calcium 9.9 mg/dl (8.6-10.3); Creatinine Clr Calc Pharmacy 54.5 ml/min; Globulin 3.2 gm/dl (2.5-4.0); Potassium 3.8 mmol/L (3.5-5.1); Total Protein 7.3 gm/dl (6.0-8.3)
--- NOTE | 2025-04-30 13:27 | XRay Report ---
XR chest 1V portable CLINICAL HISTORY: abd pain COMPARISON STUDY: 12/04/2024 FINDINGS: Stable mild cardiomegaly without pulmonary vascular congestion. Inspiration is shallow. The re is interval mild stranding opacity in the lung bases. No other consolidation or pleural effusion. No pneumothorax. IMPRESSION: Shallow inspiration with likely lung base atelectasis. ACT 112: Negative or not required by law. Electronically signed by: Ronald Yao M.D. 04/30/2025 1:25 PM
[2025-04-30] MEDS: OPTIRAY 320 100ml IV ONE (13:47)
--- NOTE | 2025-04-30 14:03 | CT Scan Report ---
ABDOMEN AND PELVIS CT WITH IV CONTRAST CT DOSE: 852.94 mGy.cm HISTORY: Acute left lower quadrant abdominal pain llq and mid abd pain TECHNIQUE: Multiaxial CT images of the abdomen and pelvis were performed following the IV administrat ion of 93 cc of Optiray, A dose lowering technique was utilized adhering to the principles of ALARA. COMPARISON STUDY: CT 12/04/2024 FINDINGS: Coronary artery calcifications. Partially imaged mild right hilar lymphadenopathy. There is mild right hemidiaphragmatic elevation with subsegmental bibasilar atelectasis/scarring. No pneumato sis or pneumoperitoneum. Unremarkable spleen, and adrenal glands. Atrophic pancreas with punctate par enchymal calcifications compatible with chronic pancreatitis. Unremarkable liver. Cholecystectomy wit h likely postsurgical mild biliary ductal dilation. There are several nonobstructing calculi in the right kidney measuring up to 4 mm. Right renal cysts measure up to 6 cm. Dilated left renal pelvis with associated ostial thickening and adjacent inflamma tory stranding. There is a 10 x 8 mm calculus in the dependent left renal pelvis on image 140 series 3. No ureteral calculi or significant hydronephrosis. Pelvic floor relaxation with hysterectomy. Athe rosclerosis of the aorta without aneurysm. No lymphadenopathy. No bowel obstruction or bowel wall thickening. Colonic diverticulosis without acute diverticulitis. T iny fat filled umbilical hernia. No acute fracture. Mild lumbar levoscoliosis. IMPRESSION: 1. Mild left-sided pelviectasis with 10 mm pelvic calculus and associated urothelial thickening with adjacent peripelvic inflammatory stranding. No significant hydronephrosis. Correlate with urinalysis to exclude superimposed infection. 2. Nonobstructing right renal calculi. 3. Cholecystectomy. 4. Colonic diverticulosis. ACT 112: Negative or not required by law. The above report was generated using voice recognition software. It may contain grammatical, syntax o r spelling errors. Electronically signed by: Nithin Paris M.D. 04/30/2025 2:02 PM
[2025-04-30 15:55] LABS: Appearance Urine Clear (Clear); Bacteria Urine Automated None Seen (None Seen); Bilirubin Urine Negative (Negative); Blood Urine Negative (Negative); Cast Urine Automated 0-2 /lpf (0-2); Color Urine Yellow; Epithelial Cell Urine Auto 0-2 /hpf (0-2); Glucose Urine UA Negative (Negative); Ketones Urine Negative (Negative); Leukocyte Esterase Urine 1+ (Negative); Nitrite Urine Negative (Negative); Protein Urine Negative (Negative); RBC Urine Automated 0-2 /hpf (0-2); Specific Gravity Urine 1.028 (1.000-1.030); Urobilinogen Urine Negative (Negative); WBC Urine Automated 0-5 /hpf (0-5); pH Urine 8.5 (4.5-7.5)
[2025-04-30] MEDS: ACETAMINOPHEN 325 MG TAB PO STA (16:33)
--- NOTE | 2025-04-30 17:25 | History & Physical Report ---
Date of Service April 30, 2025 Assessment & Plan (1) Gastritis: (2) Chronic respiratory failure with hypoxia: (3) Feeling unwell: Plan #Feeling unwelletiology not entirely clearit could simply be due to indigestion, but after I was able to discuss with her daughter Zahra, she noted that her mom has not been doing as well since her Paxil was reduced in November. This was reduced due to QTc of about 580, at 485 todaywill resume her previous dosing of 30 twice daily, supplement with magnesium and potassium daily, and check an EKG in the morning. If her QT prolongs again, we will have to have a more nuanced risk-benefit discussion, but it is also possible the QT was long ci rcumstantially 6 months ago. #Epigastric discomfort and nauseaseems to be a bad bout of indigestion, perhaps this is why she is feeling unwell. Seems to be low risk from a cardiac standpoint, troponin reassuring, overall initial workup reassuring. Give Pepcid and Maalox now. Follow symptoms. Workup further if any worsening or change in her status for the worse. Serial exams, serial labs if needed. Her CT abdomen suggests a very remote possibility of a kidney stone causing symptomsand of course, renal colic can be manifest with nausea, but at the same time her exam really does not suggest this and her bedside appearance does not suggest this. Follow with serial labs/serial exams, check a CRP to effectively rule out anything infectiousshe is afebrile with a normal white count. #Chronic respiratory failure with hypoxiauncertain etiology but follows with pulmonary. Seems to do better on 2 L and it sounds like this has been set up for home. #DVT prophylaxisLovenox #dispositionobserve on medical serial exams/serial labs if needed. Manage GI distress with Pepcid and Maalox. Resume Paxil to her previous dosing at which dosing her daughter noted she was doing better. She is going to be moving to [place] to be with her daughteranticipate being able to discharge home as long as she is feeling better. Of note, her daughter Zahra is her primary contact but lives in [place], and she and Zahra both note that her friend Marion at [phone] would be a local contact you can come to get her from the hospital at time of discharge. History of Present Illness Chief Complaint: feeling unwell Primary Care Provider: Sravanthi Hadley MD patient is a very pleasant 84-year-old female but very difficult to get much of a history from her. Whenever asking what brought her into the hospital today she noted that she felt like she needed to scream or cry, because it was so badbut whenever asking her to clarify "it" she has a very difficult time. She relates she was feeling a lot of distress earlier today but it is really hard to discern exactly what the distress was caused by. In a lot of questioning it does sound like she had some upper abdominal pain and nauseaand possibly this is the reason why. She denies fevers, although she did relate feeling warm, denies any dysuria. at the end of my interview with the patient, we were able to get in touch with her daughter Zahra who notes that she noted very significant increase in the patient's anxiety after her paroxetine dose was reduced during her last hospital stay (which appears to have been due to QT prolongation) patient notes overall feeling okay now. She relates that while she was previously a DNR prior to her dying she would like to be a full code now. She relates that fairly soon she is moving to [place] to live with her daughter. Allergies Allergy/AdvReac Type Severity Reaction Status Date / Time No Known Allergies Allergy Verified 04/10/25 14:35 Home Medications Medication Instructions Recorded Confirmed Type calcium 600 mg (as carbonate)-vit 1 tab PO QAM 06/06/19 04/30/25 History D3 20 mcg (800 unit) chewable tablet (Caltrate plus D) latanoprostene bunod 0.024 % eye 1 drp OPB UD 05/31/24 04/30/25 History drops (Vyzulta) levothyroxine 100 mcg tablet 100 mcg PO DAILYBB 12/04/24 04/30/25 History verapamil 120 mg tablet,extended 120 mg PO UD 12/04/24 04/30/25 History release verapamil 240 mg tablet,extended 240 mg PO QAM 12/04/24 04/30/25 History release Incentive Spirometer #1 ea 12/19/24 04/10/25 Rx Portable Oxygen #1 ea 12/19/24 04/10/25 Rx pravastatin 20 mg tablet 20 mg PO QPM #100 tabs 04/23/25 04/30/25 Rx paroxetine HCl 20 mg tablet 20 mg PO BID #60 tabs 04/25/25 04/30/25 Rx Past Med/Surg History Problem List (Updated 04/30/25 @ 17:33 by Musa Flower DO) Feeling unwell Chronic respiratory failure with hypoxia Restrictive lung disease Elevated hemidiaphragm Acute respiratory failure with hypoxia Norovirus Gastroenteritis due to norovirus (Acute) Hypoxia (Acute) Prolonged QT interval Impaired fasting glucose Gastritis Chronic migraine Dyslipidemia (Chronic) Hypertension (Chronic) Hypothyroidism (Chronic) Medical History Hypokalemia due to excessive gastrointestinal loss of potassium Dehydration Pancreatitis due to biliary obstruction Acute pancreatitis Nephrolithiasis Osteopenia Renal cyst Obstructive uropathy Surgical History History of lithotripsy (~2013) History of cataract surgery (~2016) History of colonoscopy (~2003) History of total abdominal hysterectomy History of tonsillectomy and adenoidectomy History of laparoscopic cholecystectomy Family History Mother Graves' disease Grandmother Hypertension Uncle Hypertension Mother Kidney stones Sister Breast cancer Social History Smoking Status: Never smoker Second Hand Exposure: No; Do You Dip or Chew Tobacco: No; Hx Alcohol Use: No Hx Substance Use: No Preferred Language: Austrian Communication Ability: Effective Light Equipment Operator Required: No Beliefs That Will Affect Care: None marital status: / Current Living Situation: Alone current occupational status: retired Feels Safe at Home: Yes Childhood Exposure to Second-Hand Smoke: Yes Diet: regular Dental Care, Regularly: Yes Physical Activity Frequency: 5-6 Times per Week Seatbelt Use: always Assistive Devices: Cane and Stair Lift Review of Systems Review of Systems: All systems reviewed & are unremarkable except as noted in HPI & below Physical Exam Physical Exam: General she is awake and alert very anxious and a bit tangential hard to keep on track. No physical distress. HEENT normocephalic atraumatic mucous membranes moist. Cardio is regular without rubs murmurs gallops. Lungs clear to auscultation bilaterally no rales rhonchi or wheeze with good effort. Abdomen is soft she has mild midepigastric or just above periumbilical tenderness without guarding rebound or rigidity, mild left lower abdominal tenderness again without guarding rebound or rigidity. No CVA tenderness. Neuro shows cranial nerves II through XII be grossly intact gross motor and sensory intact. She is fairly tangential and anxious, a little bit hard to gauge her mentation, although whenever I am on the phone with her and her daughter it seems that this around her baseline. Extremities without sinus clubbing or edema no calf tenderness. Skin without rashes pallor or icterus. Results & Data Results & Data Vital Signs (Past 12 Hours) Vital Signs Temp Pulse Pulse Pulse Resp BP BP 04/30/25 16:00 96 H 15 170/110 H 04/30/25 15:30 91 H 16 189/108 H 04/30/25 14:42 86 24 172/106 H 04/30/25 14:03 04/30/25 14:02 24 04/30/25 14:02 04/30/25 13:10 84 20 141/107 H 04/30/25 12:44 85 04/30/25 12:35 78 24 04/30/25 12:35 98.4 F 78 24 160/123 H Pulse Ox O2 Del Method O2 Flow Rate 04/30/25 16:00 96 Nasal Cannula 2 04/30/25 15:30 96 Nasal Cannula 2 04/30/25 14:42 98 Nasal Cannula 2 04/30/25 14:03 98 Nasal Cannula 2 04/30/25 14:02 85 L Nasal Cannula 2 04/30/25 14:02 85 L Room Air 04/30/25 13:10 92 Room Air 04/30/25 12:44 04/30/25 12:35 94 Room Air 04/30/25 12:35 94 Room Air Code Status & VTE Plan VTE Prophylaxis Plan VTE Prophylaxis will be ordered: Yes PG Care Time/CCT Total # of Minutes Spent Total Time Spent with Patient: Total time spent is greater than 50% in coordination of care (as documented) at patient's floor/unit and/or counseling patient: Coding Level of Care Code 85971 INT INP/OBS CARE 3/75MIN Diagnoses Gastritis K29.70 Chronic respiratory failure with hypoxia J96.11 Feeling unwell R68.89
--- NOTE | 2025-04-30 18:21 | Ultrasound Report ---
Technique: Venous ultrasound evaluation was performed utilizing grayscale, color Doppler and wave form evaluation. Images were also obtained with and without compression Findings: The bilateral common femoral, superficial femoral, popliteal, and visualized calf veins demonstrate normal anechoic lumens with full compressibility. Normal flow is seen on color Doppler images. Expected waveforms were produced with augmentation maneuvers Impression: No evidence of deep venous thrombosis Electronically signed by Dennis Luis 04-30-2025 6:20 PM
[2025-04-30] MEDS ORDERED: POLYETHYLENE (MIRALAX) 17 GM PACK PO PRN (20:29)
[2025-04-30] MEDS ORDERED: MAGNESIUM HYDROXIDE SUSP 30 ML UDC PO PRN (20:29)
[2025-04-30] MEDS ORDERED: ONDANSETRON INJ 2 MG/ML 2 ML VIAL IV PRN (20:29)
[2025-04-30] MEDS: hydrOXYzine HCl 10 MG TAB PO STA (20:47)
[2025-04-30] MEDS: MELATONIN 3 MG TAB PO PRN (21:00)
[2025-04-30] MEDS: ALUMINUM/MAGNESIUM SUSP 30 ML UDC PO STA (21:12)
[2025-04-30] MEDS: LABETALOL HCL IV 5 MG/ML 20ML IV STA (21:12)
[2025-04-30] MEDS: PARoxetine HCL 20 MG TAB PO SCH (21:14)
[2025-04-30] MEDS: PRAVASTATIN SOD 10 MG TAB PO SCH (21:14)
[2025-04-30] MEDS: VERAPAMIL HCL 120 MG TABCR PO SCH (21:14)
[2025-04-30] MEDS: FAMOTIDINE 40 MG TABLET PO ONE (21:15)
[2025-04-30] MEDS: ENOXAPARIN INJ 40 MG/0.4 ML SYR SQ SCH (21:16)
[2025-05-01] MEDS: ZOLPIDEM TARTRATE 5 MG TAB PO STA (00:25)
[2025-05-01] MEDS: ACETAMINOPHEN 325 MG TAB PO PRN (00:27)
[2025-05-01] MEDS: LEVOTHYROXINE SODIUM 100 MCG TABLET PO SCH (06:02)
[2025-05-01] MEDS: VERAPAMIL HCL 240 MG TABCR PO SCH (08:54)
[2025-05-01] MEDS: CALCIUM 600MG + VIT D 400 IU TAB PO SCH (08:54)
[2025-05-01] MEDS: MAGNESIUM OXIDE 400 MG TAB PO SCH (08:54)
[2025-05-01] MEDS: POTASSIUM CHLORIDE CRTAB 20 MEQ TABCR PO SCH (09:01)
--- NOTE | 2025-05-01 11:52 | Hospitalist Progress Note ---
Date of Service May 01, 2025 Assessment & Plan (1) Gastritis: (2) Chronic respiratory failure with hypoxia: (3) Feeling unwell: Plan #general Feeling of unwell etiology not entirely clear -However, patient says she started feeling like that soon after the dose of her Paxil was lowered due to QT prolongation -I saw her this morning and she says she feels a little better -Her dose has been restored to her old 20mg BID -Will monitor her #Epigastric discomfort and nausea seems to be a bad bout of indigestion, - Give Pepcid and Maalox now. -CT abdomen is reassuring #Chronic respiratory failure with hypoxia uncertain etiology but follows with pulmonary. -per her daughter, she was discharged on oxygen during her last amission -Currently on room air #DVT prophylaxisLovenox #dispositionHopefully d/c tomorrow She is going to be moving to [place] to be with her daughteranticipate being able to discharge home as long as she is feeling better. Of note, her daughter Zahra is her primary contact but lives in [place], and she and Zahra both note that her friend Marion at [phone] would be a local contact you can come to get her from the hospital at time of discharge. Admission and Anticipated Discharge Date Admission Date: May 01, 2025 Subjective patient seen and examined, feels a little better Review of Systems Review of Systems: All systems reviewed are negative, apart from the ones contained in the history. Physical Exam Physical Exam: The patient is awake, alert and oriented 3, well developed and well nourished, normocephalic and atraumatic, lying in bed and in no acute distress. HEENT--PERRL, EOMI, mucous membranes and oropharynx mildly dry Neck--supple. No JVD. No bruits. Thyroid normal, trachea midline, no adenopathy. Heart--normal S1 and S2. No murmurs, rubs or gallops. Lungs--clear bilaterally, no respiratory distress, no accessory muscle use. Abdomen--normal bowel sounds and soft. Extremities--no cyanosis or clubbing. No edema. Dermatologic--normal skin turgor, normal color, no abnormal lymph nodes, no rash. Neurologic--cranial nerves II through XII grossly intact. Rheumatologic--normal range of motion. Psychiatric--normal affect. Results & Data Results & Data Vital Signs (Past 12 Hours) Vital Signs Temp Pulse Resp BP Pulse Ox O2 Del Method 05/01/25 07:55 98.1 F 71 18 164/84 H 92 Room Air 05/01/25 00:00 194/106 H PG Care Time/CCT Total # of Minutes Spent Total Time Spent with Patient: Total time spent is greater than 50% in coordination of care (as documented) at patient's floor/unit and/or counseling patient: Coding Level of Care Code 59559 SUB INP/OBS CARE 2/35MIN Diagnoses Gastritis K29.70 Chronic respiratory failure with hypoxia J96.11 Feeling unwell R68.89 Time Spent (min) 35
--- NOTE | 2025-05-01 16:25 | Electrocardiogram Report ---
Test Reason : Blood Pressure : */* mmHG Vent. Rate : 76 BPM Atrial Rate : 76 BPM P-R Int : 236 ms QRS Dur : 126 ms QT Int : 484 ms P-R-T Axes : 44 -6 21 degrees QTcB Int : 544 ms Sinus rhythm with 1st degree A-V block Right bundle branch block Inferior infarct (cited on or before 30-Apr-2025) Abnormal ECG When compared with ECG of 30-Apr-2025 12:40, (unconfirmed) QT has lengthened Confirmed by Pete Aguilar ([id number]) on 05/01/2025 4:24:58 PM Referred By: REFERRED SELF Confirmed By: Pete Aguilar
[2025-05-02 04:56] LABS: Hematocrit (blood only) 42.8 % (37.0-47.0); Hemoglobin 13.8 g/dl (12.0-16.0); Mean Corpuscular Hemoglobin 27.4 pg (25.0-34.0); Mean Corpuscular Hgb Conc 32.2 g/dL (32.0-36.0); Mean Corpuscular Volume 85.1 fL (80.0-100.0); Mean Platelet Volume 10.2 fL (9.4-12.4); Platelet Count 159 K/uL (130-400); RDW Coefficient of Variation 13.2 % (11.5-14.5); RDW Standard Deviation 40.8 fL (36.4-46.3); Red Blood Count 5.03 M/uL (4.20-5.40); White Blood Count 5.39 K/ul (4.8-10.8)
[2025-05-02 05:13] LABS: BUN Creatinine Ratio 24.2 (10-20); Calcium 9.1 mg/dl (8.6-10.3); Creatinine Clr Calc Pharmacy 61.8 ml/min; Potassium 3.6 mmol/L (3.5-5.1)
[2025-05-02 07:36] VITALS: RESP 18
--- NOTE | 2025-05-02 10:52 | Hospitalist Progress Note ---
Date of Service May 02, 2025 Assessment & Plan (1) Gastritis: (2) Chronic respiratory failure with hypoxia: (3) Feeling unwell: Plan #general Feeling of unwell and anxiety etiology not entirely clear -However, patient says she started feeling like that soon after the dose of her Paxil was lowered due to QT prolongation -I saw her this morning and she says she feels a little better, but still with some anxiety -She says she feels very lonely since her passed a couple of years ago, and she misses him so much, especially at night -Her dose has been restored to her old 20mg BID -I have also added low dose xanax to help with her anxiety -Hopefully discharge her tomorrow #Epigastric discomfort and nausea seems to be a bad bout of indigestion, - Give Pepcid and Maalox now. -CT abdomen is reassuring #DVT prophylaxisLovenox #dispositionHopefully d/c tomorrow She is going to be moving to [place] to be with her daughterantic[place] being able to discharge home as long as she is feeling better. Of note, her daughter Zahra is her primary contact but lives in [place], and she and Zahra both note that her friend Marion at [phone] would be a local contact you can come to get her from the hospital at time of discharge. Admission and Anticipated Discharge Date Admission Date: May 01, 2025 Subjective patient seen and examined, feels a little better, but still gets some bouts of anxiety Review of Systems Review of Systems: All systems reviewed are negative, apart from the ones contained in the history. Physical Exam Physical Exam: The patient is awake, alert and oriented 3, well developed and well nourished, normocephalic and atraumatic, lying in bed and in no acute distress. HEENT--PERRL, EOMI, mucous membranes and oropharynx mildly dry Neck--supple. No JVD. No bruits. Thyroid normal, trachea midline, no adenopathy. Heart--normal S1 and S2. No murmurs, rubs or gallops. Lungs--clear bilaterally, no respiratory distress, no accessory muscle use. Abdomen--normal bowel sounds and soft. Extremities--no cyanosis or clubbing. No edema. Dermatologic--normal skin turgor, normal color, no abnormal lymph nodes, no rash. Neurologic--cranial nerves II through XII grossly intact. Rheumatologic--normal range of motion. Psychiatric--normal affect. Results & Data Results & Data Vital Signs (Past 12 Hours) Vital Signs Temp Pulse Resp BP Pulse Ox O2 Del Method 05/02/25 07:33 97.5 F L 67 18 132/83 93 Room Air PG Care Time/CCT Total # of Minutes Spent Total Time Spent with Patient: Total time spent is greater than 50% in coordination of care (as documented) at patient's floor/unit and/or counseling patient: Coding Level of Care Code 65836 SUB INP/OBS CARE 2/35MIN Diagnoses Gastritis K29.70 Chronic respiratory failure with hypoxia J96.11 Feeling unwell R68.89 Time Spent (min) 35
[2025-05-02] MEDS: ALPRAZolam 0.25 MG TABLET PO PRN (11:44)
--- NOTE | 2025-05-02 15:26 | Electrocardiogram Report ---
Test Reason : Blood Pressure : */* mmHG Vent. Rate : 78 BPM Atrial Rate : 78 BPM P-R Int : 208 ms QRS Dur : 118 ms QT Int : 426 ms P-R-T Axes : 31 4 -5 degrees QTcB Int : 485 ms Normal sinus rhythm Inferior infarct , age undetermined Abnormal ECG When compared with ECG of 06-Dec-2024 12:21, No significant change Confirmed by Pete Aguilar ([id number]) on 05/02/2025 3:26:09 PM Referred By: Confirmed By: Pete Aguilar
[2025-05-02 15:41] VITALS: O2SAT 92
[2025-05-03 07:08] LABS: Hematocrit (blood only) 42.8 % (37.0-47.0); Hemoglobin 13.7 g/dl (12.0-16.0); Mean Corpuscular Hemoglobin 27.6 pg (25.0-34.0); Mean Corpuscular Volume 86.3 fL (80.0-100.0); Mean Platelet Volume 9.4 fL (9.4-12.4); Platelet Count 181 K/uL (130-400); RDW Coefficient of Variation 13.2 % (11.5-14.5); Red Blood Count 4.96 M/uL (4.20-5.40); White Blood Count 4.73 K/ul (4.8-10.8)
[2025-05-03 07:15] VITALS: BP 125/84; PULSE 66; TEMP 97.5
[2025-05-03 07:28] LABS: BUN Creatinine Ratio 31.1 (10-20); Creatinine Clr Calc Pharmacy 66.9 ml/min; Potassium 3.8 mmol/L (3.5-5.1)
--- NOTE | 2025-05-03 10:01 | Discharge Summary ---
Discharge Summary Date of Service May 03, 2025 Principal Dx & Hospital Course #1 = Principal Diagnosis (1) Gastritis: (2) Chronic respiratory failure with hypoxia: (3) Feeling unwell: Plan This is an 84 year old female with past medical history of restrictive lung disease, dyslipidemia, hypertension who presented to the ED on 04/30/25 for a general feeling of not well. #Not feeling well/anxiety Etiology unclear however she had a recent decreased dose of Paxil due to QT prolongation. EKG on admission showing QT interval < 500. passed a few years ago & she has been lonely since, especially @ night. Paxil dose increased back to 20mg twice daily. #Epigastric discomfort s/p Pepcid/Maalox --> recommend prn doses outpatient no further issues CTAP negative Discharged home w/ home health Admission HPI Per Admitting Provider patient is a very pleasant 84-year-old female but very difficult to get much of a history from her. Whenever asking what brought her into the hospital today she noted that she felt like she needed to scream or cry, because it was so badbut whenever asking her to clarify "it" she has a very difficult time. She relates she was feeling a lot of distress earlier today but it is really hard to discern exactly what the distress was caused by. In a lot of questioning it does sound like she had some upper abdominal pain and nauseaand possibly this is the reason why. She denies fevers, although she did relate feeling warm, denies any dysuria. at the end of my interview with the patient, we were able to get in touch with her daughter Zahra who notes that she noted very significant increase in the patient's anxiety after her paroxetine dose was reduced during her last hospital stay (which appears to have been due to QT prolongation) patient notes overall feeling okay now. She relates that while she was previously a DNR prior to her dying she would like to be a full code now. She relates that fairly soon she is moving to [place] to live with her daughter. Discharge Exam General: no acute distress; non-toxic appearing; well-nourished; cooperative HEENT: normocephalic, atraumatic; no scleral icterus; PERRLA w/ EOMs intact; vision and hearing grossly intact Neck: trachea midline Skin: warm, dry without signs of tenting; no cyanosis; no rashes, bruising, lesions, or erythema noted Lungs: no acute respiratory distress; symmetrical chest wall expansion MSK: no edema noted in the LEs b/l, nonerythematous Neuro: A&Ox3; normal mood and affect; fluent speech; no focal deficits Discharge Plan Discharge Items Patient Disposition: Home - Home Health Services Reason For Visit: UNWELL Discharge Diagnosis: Feeling unwell, anxiety Condition on Discharge: Fair Activity: Resume your previous activity Non-emergency contact: Primary Care Provider Call non-emergency contact if: you have any medication questions and your symptoms worsen Follow-up/Referrals: Sravanthi Hadley MD [Primary Care Provider] - 05/21/25 1:00 pm Diet: Regular Addtl Attending Provider Instructions: Ms. Roque, You were recently hospitalized for not feeling well. We have adjusted your anxiety medication and you have started to improve. Please see recommendations below regarding your discharge. Your Paxil has been changed to 20mg twice daily. - an updated script has been sent to your pharmacy. The remainder of your outpatient medications may be resumed. If you feel that your stomach is upset. You may use over the counter medications to help such as Tums, Pepcid, or Prilosec. - If taken greater than 7 days please ask your PCP for additional recommendations. Please follow up with your PCP within 1-2 weeks of discharge. Best of luck! Ailin Hackett PA-C Pending Studies at Discharge: No Stand-Alone Forms: My [facility] ARCsys, Smoking Cessation Medications and DC Order Prescriptions: Continued pravastatin 20 mg tablet 20 mg PO QPM Qty: 100 3RF Caltrate 600 plus D 600 mg (1,500 mg)-800 unit tablet,chewable 1 tab PO QAM Rx Instructions: 04/30-OTC unable to verify Vyzulta 0.024 % drops 1 drp OPB UD Rx Instructions: original:1 drp opb qpm 04/30-last filled 11/07/24 25 day supply verapamil 120 mg tablet extended release 120 mg PO UD Rx Instructions: original:120mg po hs 04/30-last filled 09/28/24 90 day supply levothyroxine 100 mcg tablet 100 mcg PO DAILYBB verapamil 240 mg tablet extended release 240 mg PO QAM paroxetine HCl 20 mg tablet 20 mg PO BID Qty: 60 0RF No Action (DME) Portable Oxygen Misc See Rx Instructions .MEDSUPPLY Qty: 1 0RF Rx Instructions: Oxygen 1 liters continuous via nasal cannula on exertion with portable concentrator. BRITTANEY 99 (DME) Incentive Spirometer Misc See Rx Instructions .MEDSUPPLY Qty: 1 0RF Rx Instructions: As directed Discharge Orders: Discharge Order (Routine); Ordered 05/03/25 Ordered By: Ailin Hackett Admission Data Admit Date/Time: 05/01/25 10:39 Attending Provider: Tremayne Pruitt Admit Provider: Musa Flower Primary Care Provider: Sravanthi Hadley Other Providers: Carlos Uribe; [facility],Home Healthcare; [facility] Other Interventions: Discharge Summary Assessment (RN) Last Done: 05/03/25 10:16 Hospital Stay Data Consultations 04/30/25 16:40 ED Decision to Admit Stat Diagnostic Imagining Performed 04/30/25 12:55 CT Abd and Pelvis [CT abd pelvis IV con only] Stat 04/30/25 16:16 US venous doppler LE BI Stat Pending Results Patient Have Any Pending Studies at Discharge: No Discharge Instructions Given to Patient (Per Discharging Provider) Ms. Roque, You were recently hospitalized for not feeling well. We have adjusted your anxiety medication and you have started to improve. Please see recommendations below regarding your discharge. Your Paxil has been changed to 20mg twice daily. - an updated script has been sent to your pharmacy. The remainder of your outpatient medications may be resumed. If you feel that your stomach is upset. You may use over the counter medications to help such as Tums, Pepcid, or Prilosec. - If taken greater than 7 days please ask your PCP for additional recommendations. Please follow up with your PCP within 1-2 weeks of discharge. Best of luck! Ailin Hackett PA-C Total Time Total Time Spent Total Time Spent (In Minutes): 40 Total Time Includes: Examination of the Patient, Discharge Planning and Medication Reconciliation Coding Level of Care Code 67115 INP/OBS DISCH >30 MIN Diagnoses Gastritis K29.70 Chronic respiratory failure with hypoxia J96.11 Feeling unwell R68.89
== END 2025-05-03 14:18 | disposition home health service (06) | DRG 392 ==
LOC: EDINP 12:34 → ED 12:34 → SUATTDRO 17:22 → 3W 20:29 → SUATTDRO 05-01 10:39